=== PATIENT | male | born 1980 | race Caucasian/White ===

== ENCOUNTER 2016-04-24 17:06 | Emergency (ER) | payer OTHER ==
[~2016-04-24 17:06] MED LIST: IBUP-1277 PO; TYLOTC500 PO
[2016-04-24 17:09] VITALS: TEMP 36.7; Ht 162.6 cm
[2016-04-24] MEDS ORDERED: SODIUM CHLORIDE 0.9% 1000ML 1,000 ML IV STA (17:22)
[2016-04-24 17:42] LABS: BASO % 0.1 %; BASO ABS # 0.01 K/uL (0-0.2); COMPLETE YES; EOS % 0.9 %; HEMATOCRIT 42.6 % (42-52); IG% 0.1 %; LYMPH ABS # 2.51 K/uL (1.2-3.4); MEAN CELL VOLUME 84.2 fL (80-100); MEAN CORPUSCULAR HEMOGLOBIN 30.2 pg (25-34); MEAN CORPUSCULAR HGB CONC 35.9 g/dl (32-36); MEAN PLATELET VOLUME 9.1 fL (7.4-10.4); MONO % 10.3 %; NEUT % 52.6 %; PLATELET COUNT 265 K/uL (130-400); RED BLOOD COUNT 5.06 M/uL (4.7-6.1); WHITE BLOOD COUNT 6.97 K/uL (4.8-10.8)
[2016-04-24] MEDS ORDERED: ASPCH81X PO (17:45)
[2016-04-24] MEDS ORDERED: ATOR10TA88 PO (17:45)
[2016-04-24] MEDS ORDERED: GLC/500 PO (17:45)
[2016-04-24 17:57] LABS: URINE APPEARANCE CLOUDY (CLEAR); URINE BILIRUBIN NEG (NEG); URINE COLOR YELLOW; URINE EPITHELIAL CELL AUTO 0-5 /lpf (0-5); URINE NITRITE NEG (NEG); URINE PH 6.5 (4.5-7.5); URINE SPECIFIC GRAVITY 1.023 (1.000-1.030); UROBILINOGEN NEG (NEG); ZZUR CULT IF INDIC CLEAN CATCH NO
[2016-04-24 17:57] LABS: ALT/SGPT 124 U/L (12-78); BLOOD UREA NITROGEN 11 mg/dl (7-18); CALCIUM 8.9 mg/dl (8.5-10.1); CARBON DIOXIDE 22 mmol/L (21-32); CHLORIDE 107 mmol/L (98-107); CREATININE 0.81 mg/dl (0.60-1.40); GLUCOSE 107 mg/dl (70-99); POTASSIUM 3.9 mmol/L (3.5-5.1); SODIUM 140 mmol/L (136-145)
[2016-04-24 18:00] LABS: ALKALINE PHOSPHATASE 98 U/L (45-117); AST/SGOT 44 U/L (15-37)
[2016-04-24 18:00] LABS: MANUAL MICROSCOPIC REQUIRED? NO; REVIEW REQ? NO
[2016-04-24] MEDS ORDERED: OPTIRAY 320 IV PRN (18:15)
--- NOTE | 2016-04-24 18:49 | DIAGNOSTIC IMAGING REPORT ---
ABDOMEN AND PELVIS CT WITH IV CONTRAST CT DOSE: 1082.92 mGy.cm HISTORY: Pain bloody stool, periumbilical pain, ? Colitis TECHNIQUE: Multiaxial CT images of the abdomen and pelvis were performed following the use of intravenous contrast. COMPARISON STUDY: None. FINDINGS: The lung bases are clear. The liver, spleen, gallbladder, pancreas, kidneys, and adrenal glands are within normal limits. No bowel wall thickening or obstruction. The pelvic organs are unremarkable. No suspicious lytic or blastic osseous lesions. Normal appendix. Nonobstructive bowel pattern. IMPRESSION: No significant abnormality identified within the abdomen or pelvis. Electronically signed by: Karthikeyan Abarca M.D. 04/24/2016 6:48 PM Dictated Date/Time: 04/24/2016 6:44 PM
[2016-04-24 18:59] VITALS: BP 110/73; PULSE 79; O2SAT 96
--- NOTE | 2016-04-24 21:07 | EMERGENCY ROOM VISIT NOTE ---
History Report prepared by Sirenaibguanako: Brigida Austin Under the Supervision of: Dr. Rodney Cook M.D. First contact with patient: 17:22 Chief Complaint: ABDOMINAL PAIN Stated Complaint: STABBING PAIN IN ABDOMENW/ DIASTASIS RECTI Nursing Triage Summary: Pt has been experincing umbilical pain for the past couple days. Pt states the pain comes and goes. Pt states that nothing exacerbates pain. Pt states that his umbilical area is tender to touch. Pt states he has a stabbing pain with coughing or touch. Pain is a 5 out of 10. Pt denies any N/V/D History of Present Illness The patient is a 35 year old male who presents to the Emergency Room with complaints of intermittent periumbilical abdominal pain over the past 2 days. The patient states that 2 days ago, he had a bowel movement and noticed that the water in the commode was bright red. He was not having abdominal pain at that time. He states that he noticed some pain to the touch in his abdomen but he did not think anything of it. Yesterday he stabbing pain around his umbilicus , especially if he would move or cough. Currently he states that his pain is a 4 -5/10 with movement. He notes that he frequently has right sided abdominal pain , which is not new, that he attributes to constipation. He has not taken anything for the pain. Pt denies LOC, headache, fevers, chills, diaphoresis, visual changes, neck pain, chest pain, breathing difficulties, nausea, vomiting , back pain, melena, urinary symptoms, numbness, weakness, lymphadenopathy, rash , or other complaints. Source of History: patient Onset: over the past 2 days Position: abdomen (periumbilical) Quality: stabbing Timing: intermittent Modifying Factors (Worsening): movement, other (coughing) Note: Other symptoms: Bloody bowel movement Review of Systems See HPI for pertinent positives and negatives. A total of ten systems were reviewed and were otherwise negative. Past Medical & Surgical Medical Problems: (1) Club foot of both lower extremities (2) Fracture of finger, proximal, closed (3) Pneumonia Surgical Problems: (1) History of orthopedic surgery Family History Cancer Diabetes mellitus Heart disease Hypertension Kidney disease Kidney stones Lung disease Social History Smoking Status: Never Smoker Alcohol Use: none Drug Use: none Marital Status: Housing Status: lives with family Occupation Status: employed Current/Historical Medications Scheduled Aspirin (Aspirin Chewable), 81 MG PO HS Atorvastatin (Lipitor), 10 MG PO HS Metformin Hcl (Glucophage), 500 MG PO BID Scheduled PRN Acetaminophen (Tylenol), 1,000 MG PO Q6 PRN for Pain Ibuprofen (Advil), 200-600 MG PO Q4H PRN for Pain Allergies Coded Allergies: No Known Allergies (Unverified , 04/24/16) Physical Exam Vital Signs Date Time Temp Pulse Resp B/P Pulse Ox O2 Delivery O2 Flow Rate FiO2 04/24/16 18:59 79 20 110/73 96 Room Air 04/24/16 17:29 94 04/24/16 17:09 36.7 100 20 143/91 96 Physical Exam GENERAL: Awake, alert, well-appearing, in no distress HENT: Normocephalic, atraumatic. Oropharynx unremarkable. EYES: Normal conjunctiva. Sclera non-icteric. NECK: Supple. No nuchal rigidity. FROM. No JVD. RESPIRATORY: Clear to auscultation. CARDIAC: Regular rate, normal rhythm. Extremities warm and well perfused. Pulses equal. ABDOMEN: Soft, non-distended. Small, mildly tender, nonerythematous umbilical hernia. No rebound or guarding. No masses. RECTAL: No active bleeding. No fissures. Minimal hemorrhoidal disease. MUSCULOSKELETAL: Chest examination reveals no tenderness. The back is symmetrical on inspection without obvious abnormality. There is no CVA tenderness to palpation. No joint edema. LOWER EXTREMITIES: Calves are equal size bilaterally and non-tender. No edema. No discoloration. NEURO: Normal sensorium. No sensory or motor deficits noted. SKIN: No rash or jaundice noted. Medical Decision & Procedures ER Provider Diagnostic Interpretation: Radiology results as stated below per my review and radiologist interpretation. ABDOMEN AND PELVIS CT WITH IV CONTRAST CT DOSE: 1082.92 mGy.cm HISTORY: Pain bloody stool, periumbilical pain, ? Colitis TECHNIQUE: Multiaxial CT images of the abdomen and pelvis were performed following the use of intravenous contrast. COMPARISON STUDY: None. FINDINGS: The lung bases are clear. The liver, spleen, gallbladder, pancreas, kidneys, and adrenal glands are within normal limits. No bowel wall thickening or obstruction. The pelvic organs are unremarkable. No suspicious lytic or blastic osseous lesions. Normal appendix. Nonobstructive bowel pattern. IMPRESSION: No significant abnormality identified within the abdomen or pelvis. Electronically signed by: Karthikeyan Abarca M.D. 04/24/2016 6:48 PM Dictated Date/Time: 04/24/2016 6:44 PM Laboratory Results 04/24/16 17:36 Red Blood Count 5.06, Mean Corpuscular Volume 84.2, Mean Corpuscular Hemoglobin 30.2, Mean Corpuscular Hemoglobin Concent 35.9, Mean Platelet Volume 9.1, Neutrophils (%) (Auto) 52.6, Lymphocytes (%) (Auto) 36.0, Monocytes (%) (Auto) 10.3, Eosinophils (%) (Auto) 0.9, Basophils (%) (Auto) 0.1, Neutrophils # (Auto ) 3.66, Lymphocytes # (Auto) 2.51, Monocytes # (Auto) 0.72, Eosinophils # (Auto ) 0.06, Basophils # (Auto) 0.01 04/24/16 17:36 Test 04/24/16 17:36 04/24/16 17:40 White Blood Count 6.97 K/uL (4.8-10.8) Red Blood Count 5.06 M/uL (4.7-6.1) Hemoglobin 15.3 g/dL (14.0-18.0) Hematocrit 42.6 % (42-52) Mean Corpuscular Volume 84.2 fL (80-100) Mean Corpuscular Hemoglobin 30.2 pg (25-34) Mean Corpuscular Hemoglobin Concent 35.9 g/dl (32-36) Platelet Count 265 K/uL (130-400) Mean Platelet Volume 9.1 fL (7.4-10.4) Neutrophils (%) (Auto) 52.6 % Lymphocytes (%) (Auto) 36.0 % Monocytes (%) (Auto) 10.3 % Eosinophils (%) (Auto) 0.9 % Basophils (%) (Auto) 0.1 % Neutrophils # (Auto) 3.66 K/uL (1.4-6.5) Lymphocytes # (Auto) 2.51 K/uL (1.2-3.4) Monocytes # (Auto) 0.72 K/uL (0.11-0.59) Eosinophils # (Auto) 0.06 K/uL (0-0.5) Basophils # (Auto) 0.01 K/uL (0-0.2) RDW Standard Deviation 39.5 fL (36.4-46.3) RDW Coefficient of Variation 13.1 % (11.5-14.5) Immature Granulocyte % (Auto) 0.1 % Immature Granulocyte # (Auto) 0.01 K/uL (0.00-0.02) Anion Gap 11.0 mmol/L (3-11) Estimated GFR () 131.6 Estimated GFR (Non- 113.5 BUN/Creatinine Ratio 14.0 (10-20) Calcium Level 8.9 mg/dl (8.5-10.1) Total Bilirubin 0.3 mg/dl (0.2-1) Direct Bilirubin < 0.1 mg/dl (0-0.2) Aspartate Amino Transf (AST/SGOT) 44 U/L (15-37) Alanine Aminotransferase (ALT/SGPT) 124 U/L (12-78) Alkaline Phosphatase 98 U/L (45-117) Total Protein 8.3 gm/dl (6.4-8.2) Albumin 4.3 gm/dl (3.4-5.0) Lipase 171 U/L (73-393) Urine Color YELLOW Urine Appearance CLOUDY (CLEAR) Urine pH 6.5 (4.5-7.5) Urine Specific Wiley 1.023 (1.000-1.030) Urine Protein NEG (NEG) Urine Glucose (UA) NEG (NEG) Urine Ketones NEG (NEG) Urine Occult Blood NEG (NEG) Urine Nitrite NEG (NEG) Urine Bilirubin NEG (NEG) Urine Urobilinogen NEG (NEG) Urine Leukocyte Esterase NEG (NEG) Urine WBC (Auto) 0 /hpf (0-5) Urine RBC (Auto) 0-4 /hpf (0-4) Urine Hyaline Casts (Auto) 0 /lpf (0-5) Urine Epithelial Cells (Auto) 0-5 /lpf (0-5) Urine Bacteria (Auto) NEG (NEG) Laboratory results reviewed by me Medications Administered Medications (Trade) Dose Ordered Sig/Stephanie Route Start Time Stop Time Status Last Admin Dose Admin Sodium Chloride (Nss 1000ml) 1,000 ml @ 999 mls/hr Q1H1M STAT IV 04/24/16 17:22 2/3/17 18:22 DC 04/24/16 17:39 999 MLS/HR ED Course 1722: Ordered NSS 1000 ml @ 999 mls/hr IV. 180: The patient was evaluated in room C9. A complete history and physical exam was performed. 1904: I reevaluated the patient. Discussed results and discharge instructions: He verbalized understanding and agreement. The patient is ready for discharge. Medical Decision Triage Nursing notes reviewed. The patient's presentation and history were concerning for abdominal pain and bloody stool. Etiologies such as appendicitis, diverticulitis, obstruction, hernia, fissure, hemorrhoids, inflammatory bowel disease, renal colic, PUD, biliary pathology, pancreatitis, mesenteric ischemia, aortic pathology, infections, genitourinary, UTI, perforated viscus, as well as others were entertained. The patient was evaluated. On examination he had a small umbilical hernia that was reducible. This was tender. This did reproduce the patient's symptoms. His rectal examination did not reveal any evidence of fissure or significant hemorrhoid. There is no active bleeding. The patient had unremarkable labs. CT imaging was performed. There is no significant intra-abdominal abnormalities. Umbilical fat-containing hernia was noted. The patient was informed. Hernia precautions given. On further questioning the patient noted a hard stool before the episode of bleeding. He notes he has had that in the past with hard stool. The patient noted a normal bowel movement after that yesterday and then had a bowel movement today without any bleeding. He is recommending sounds most consistent with constipation and possible small fissure or hemorrhoidal issue. The patient will follow-up closely as an outpatient. He was referred to general surgery as well as his primary physician. If he worsens in any way he will be back to the emergency department for reevaluation. By the evaluation outlined above other emergent etiologies such as those listed in the differential, as well as others, were deemed relatively unlikely. The patient and significant other were informed about the findings as listed above. All questions were answered and they were pleased with the treatment. Return instructions were outlined and the patient was discharged in stable condition. The chart was completed utilizing [employer] recognition software. Grammatical errors, random word insertions, pronoun errors, and incomplete sentences are an occasional consequence of this system due to software limitations, ambient noise, and hardware issues. Any formal questions or concerns about the content, text, or information contained within the body of this dictation should be directly addressed to the physician for clarification. Impression Primary Impression: Umbilical hernia Additional Impression: Rectal bleeding Scribe Attestation The scribe's documentation has been prepared under my direction and personally reviewed by me in its entirety. I confirm that the note above accurately reflects all work, treatment, procedures, and medical decision making performed by me. Departure Information Dispostion Home / Self-Care Referrals Nehemias Strickland M.D. (MEDICAL) (PCP) Forms Call Back Authorization, HOME CARE DOCUMENTATION FORM, IMPORTANT VISIT INFORMATION Patient Instructions My [facility] Additional Instructions Diagnosis: 1. Umbilical hernia Ibuprofen(Motrin, Advil) may be used for fever or pain. Use 600mg every six hours as needed. Take with food. Avoid using more than 2400mg in a 24 hour period. Do not use 2400mg per day for more than three consecutive days without physician direction. Prolonged inappropriate use can lead to stomach upset or ulcers. (AND/OR) Acetaminophen(Tylenol) may be used for fever or pain. Use 1000mg every six hours as needed. Avoid using more than 4000mg in a 24 hour period. Rest and drink plenty of fluids as tolerated. Slow sips of water or sports drinks are recommended instead of large amounts all at once. Hold your Glucophage. Recheck with your family doctor on Wednesday before restarting. Watch sugar and carbohydrate intake. Kidney function should be checked before restarting this due to the CAT scan. Continue other current medications. Once your stomach is settled start with a clear liquid diet (jello, soup broth, etc.) and then advance as tolerated. You should avoid full, heavy meals for about 24 hrs from the time your symptoms resolved. If the hernia pops out, laid flat and apply gentle pressure to push this back in. If it does not resolve or becomes stomach and read with associated pain then come back to the Emergency Room. Return to the ER immediately for worsening or persistent abdominal pain, vomiting, fevers, chest pains, difficulty breathing, black or bloody stools, worsening of your condition, or as needed. Follow up with Dr. Torres general surgery for a recheck of your current condition. Follow-up with your primary care physician in 3 days for a recheck of your current condition. Problem Qualifiers
== END 2016-04-24 19:25 | disposition home or self-care (01) ==
LOC: C.EDB 17:08 → C.EDC 19:25
DX: K42.9 Umbilical hernia without obstruction or gangrene (principal); K62.5 Hemorrhage of anus and rectum

== ENCOUNTER 2016-06-05 16:08 | Emergency (ER) | payer OTHER ==
[~2016-06-05] VITALS: Ht 162.6 cm; Wt 104.7 kg
[~2016-06-05 16:08] MED LIST changes: +ASPCH81X PO; +ATOR10TA88 PO; +GLC/500 PO
[2016-06-05 16:11] VITALS: TEMP 37.6; Ht 162.6 cm; Wt 104.7 kg
[2016-06-05] MEDS ORDERED: ALBUT/IPRATROP 3MG/0.5MG NEB 3 ML VIAL INH STA ×2 (16:33→18:59)
[2016-06-05] MEDS ORDERED: SODIUM CHLORIDE 0.9% 1000ML 1,000 ML IV STA (16:33)
[2016-06-05] MEDS ORDERED: ATOR-22 PO (16:43)
[2016-06-05] MEDS ORDERED: COEN1CAP17 PO (16:43)
[2016-06-05] MEDS ORDERED: CEFTRIAXONE SOD INJ 1 GM ADDVIAL IV STA (16:45)
[2016-06-05] MEDS ORDERED: OXYCODONE/ACETAMINOPHEN 5-325 TAB PO ONE (17:00)
--- NOTE | 2016-06-05 17:23 | DIAGNOSTIC IMAGING REPORT ---
CHEST ONE VIEW PORTABLE CLINICAL HISTORY: sob dyspnea COMPARISON STUDY: 11/30/2014 FINDINGS: Diffuse infiltrate left mid to lower lung. Right lung is clear. Diaphragms smooth. IMPRESSION: Diffuse parenchymal infiltrate left mid to lower lung Electronically signed by: Karthikeyan Abarca M.D. 06/05/2016 5:21 PM Dictated Date/Time: 06/05/2016 5:21 PM
[2016-06-05 17:26] LABS: BASO % 0.1 %; BASO ABS # 0.01 K/uL (0-0.2); COMPLETE YES; EOS % 0.7 %; HEMATOCRIT 39.3 % (42-52); IG% 0.2 %; LYMPH % 17.1 %; LYMPH ABS # 2.34 K/uL (1.2-3.4); MEAN CORPUSCULAR HEMOGLOBIN 30.4 pg (25-34); MEAN CORPUSCULAR HGB CONC 35.4 g/dl (32-36); MEAN PLATELET VOLUME 9.5 fL (7.4-10.4); MONO % 4.7 %; NEUT % 77.2 %; PLATELET COUNT 234 K/uL (130-400); RED BLOOD COUNT 4.57 M/uL (4.7-6.1); WHITE BLOOD COUNT 13.69 K/uL (4.8-10.8)
[2016-06-05 17:33] LABS: INR 1.1 (0.9-1.1); PARTIAL THROMBOPLASTIN RATIO 1.2; PROTHROMBIN TIME (PATIENT) 11.9 SECONDS (9.0-12.0)
[2016-06-05 17:42] LABS: ALT/SGPT 70 U/L (12-78); AST/SGOT 18 U/L (15-37); BLOOD UREA NITROGEN 12 mg/dl (7-18); BUN/CREATININE RATIO 15.8 (10-20); CALCIUM 8.4 mg/dl (8.5-10.1); CARBON DIOXIDE 23 mmol/L (21-32); CHLORIDE 106 mmol/L (98-107); CREATININE 0.74 mg/dl (0.60-1.40); GLUCOSE 110 mg/dl (70-99); POTASSIUM 3.7 mmol/L (3.5-5.1); SODIUM 138 mmol/L (136-145)
[2016-06-05 17:47] LABS: ALKALINE PHOSPHATASE 76 U/L (45-117)
[2016-06-05] MEDS ORDERED: AMPICILLIN/SULBACTAM SOD INJ 3,000 MG in SODIUM CHLORIDE 0.9% 100ML 100 ML IV ONE (19:00)
[2016-06-05] MEDS ORDERED: ALBUTEROL HFA 8 GM INHALER INH ONE (19:15)
[2016-06-05] MEDS ORDERED: AMOX875T PO (19:15)
--- NOTE | 2016-06-05 19:16 | EMERGENCY ROOM VISIT NOTE ---
History Report prepared by Jeanette: Dimitry Camargo Under the Supervision of: Dr. Jabari Johnston D.O. First contact with patient: 16:31 Chief Complaint: FEVER Stated Complaint: FEVER, COUGHING BLOOD,SORE THROAT, S/P COLONOSCOPY History of Present Illness The patient is a 35 year old male who presents to the Emergency Room with complaints of a persistent fever beginning one day prior to arrival. He currently rates his discomfort as a 4/10 in severity. The patient associates a cough with blood in the sputum, sorethroat, wheezing, and decreased appetite with today's symptoms. He states he had a colonoscopy performed yesterday, in which, he was briefly intubated. The patient notes he developed a fever last night. As per , the fever was 102 F last night and has been over 100 F all day today. The patient states he has been taking ibuprofen to relieve his symptoms. He notes his colonoscopy went well other than the intubation and developing his symptoms last night. The patient states he is a diabetic but denies any pulmonary issues. Source of History: patient Onset: one day [employer] Position: other (global) Symptom Intensity: 4/10 Quality: other (fever) Timing: other (persistent) Modifying Factors (Relieving): ibuprofen Associated Symptoms: + cough (w/ some blood in sputum), + fevers, + sorethroat Note: Associated symptoms: wheezing, decreased appetite. Review of Systems See HPI for pertinent positives & negatives. A total of 10 systems reviewed and were otherwise negative. Past Medical & Surgical Medical Problems: (1) Club foot of both lower extremities (2) Diabetes (3) Fracture of finger, proximal, closed (4) Pneumonia Surgical Problems: (1) History of orthopedic surgery Family History Cancer Diabetes mellitus Heart disease Hypertension Kidney disease Kidney stones Lung disease Social History Smoking Status: Never Smoker Alcohol Use: none Drug Use: none Marital Status: Housing Status: lives with family Occupation Status: employed Current/Historical Medications Scheduled Aspirin (Aspirin Chewable), 81 MG PO HS Atorvastatin (Lipitor), 20 MG PO DAILY Coenzyme Q10 (Ubidecarenone) (Co Q 10), 1 CAP PO DAILY Metformin Hcl (Glucophage), 500 MG PO BID Allergies Coded Allergies: No Known Allergies (Unverified , 06/05/16) Physical Exam Vital Signs Date Time Temp Pulse Resp B/P Pulse Ox O2 Delivery O2 Flow Rate FiO2 06/05/16 18:00 93 18 116/77 94 Room Air 06/05/16 16:11 37.6 102 20 134/89 93 Room Air Physical Exam CONSTITUTIONAL/VITAL SIGNS: Reviewed / noted above. GENERAL: Non-toxic in appearance. INTEGUMENTARY: Warm, dry, and Maria Antonia. HEAD: Normocephalic. EYES: without scleral icterus or trauma. ENT/OROPHARYNX: Erythema to the uvula with a small amount of white plaque on the right side of the uvula. LYMPHADENOPATHY/NECK: Is supple without lymphadenopathy or meningismus. RESPIRATORY: There is some mild end expiratory wheezing. CARDIOVASCULAR: Regular rate and rhythm. GI/ABDOMEN: Soft and nontender. No organomegaly or pulsatile mass. No rebound or guarding. Normal bowel sounds. EXTREMITIES: Warm and well perfused. BACK: No CVA tenderness. NEUROLOGICAL: Intact without focal deficits. PSYCHIATRIC: normal affect. MUSCULOSKELETAL: Normally developed with good muscle tone. Medical Decision & Procedures ER Provider Diagnostic Interpretation: X ray results and stated below per my interpretation and radiology interpretation. CHEST ONE VIEW PORTABLE CLINICAL HISTORY: sob dyspnea COMPARISON STUDY: 11/30/2014 FINDINGS: Diffuse infiltrate left mid to lower lung. Right lung is clear. Diaphragms smooth. IMPRESSION: Diffuse parenchymal infiltrate left mid to lower lung Electronically signed by: Karthikeyan Abarca M.D. 06/05/2016 5:21 PM Laboratory Results 06/05/16 17:00 Red Blood Count 4.57, Mean Corpuscular Volume 86.0, Mean Corpuscular Hemoglobin 30.4, Mean Corpuscular Hemoglobin Concent 35.4, Mean Platelet Volume 9.5, Neutrophils (%) (Auto) 77.2, Lymphocytes (%) (Auto) 17.1, Monocytes (%) (Auto) 4.7, Eosinophils (%) (Auto) 0.7, Basophils (%) (Auto) 0.1, Neutrophils # (Auto) 10.57, Lymphocytes # (Auto) 2.34, Monocytes # (Auto) 0.65, Eosinophils # (Auto) 0.09, Basophils # (Auto) 0.01 06/05/16 17:00 Test 06/05/16 17:00 06/05/16 17:10 White Blood Count 13.69 K/uL (4.8-10.8) Red Blood Count 4.57 M/uL (4.7-6.1) Hemoglobin 13.9 g/dL (14.0-18.0) Hematocrit 39.3 % (42-52) Mean Corpuscular Volume 86.0 fL (80-100) Mean Corpuscular Hemoglobin 30.4 pg (25-34) Mean Corpuscular Hemoglobin Concent 35.4 g/dl (32-36) Platelet Count 234 K/uL (130-400) Mean Platelet Volume 9.5 fL (7.4-10.4) Neutrophils (%) (Auto) 77.2 % Lymphocytes (%) (Auto) 17.1 % Monocytes (%) (Auto) 4.7 % Eosinophils (%) (Auto) 0.7 % Basophils (%) (Auto) 0.1 % Neutrophils # (Auto) 10.57 K/uL (1.4-6.5) Lymphocytes # (Auto) 2.34 K/uL (1.2-3.4) Monocytes # (Auto) 0.65 K/uL (0.11-0.59) Eosinophils # (Auto) 0.09 K/uL (0-0.5) Basophils # (Auto) 0.01 K/uL (0-0.2) RDW Standard Deviation 42.1 fL (36.4-46.3) RDW Coefficient of Variation 13.4 % (11.5-14.5) Immature Granulocyte % (Auto) 0.2 % Immature Granulocyte # (Auto) 0.03 K/uL (0.00-0.02) Prothrombin Time 11.9 SECONDS (9.0-12.0) Prothromb Time International Ratio 1.1 (0.9-1.1) Activated Partial Thromboplast Time 29.9 SECONDS (21.0-31.0) Partial Thromboplastin Ratio 1.2 Anion Gap 9.0 mmol/L (3-11) Est Creatinine Clear Calc Drug Dose 149.7 ml/min Estimated GFR () 136.6 Estimated GFR (Non- 117.8 BUN/Creatinine Ratio 15.8 (10-20) Calcium Level 8.4 mg/dl (8.5-10.1) Total Bilirubin 0.7 mg/dl (0.2-1) Aspartate Amino Transf (AST/SGOT) 18 U/L (15-37) Alanine Aminotransferase (ALT/SGPT) 70 U/L (12-78) Alkaline Phosphatase 76 U/L (45-117) Total Creatine Kinase 65 U/L (39-308) Creatine Kinase MB < 0.5 ng/ml (0.5-3.6) Creatine Kinase MB Ratio (0-3.0) Troponin I < 0.015 ng/ml (0-0.045) Total Protein 7.7 gm/dl (6.4-8.2) Albumin 3.8 gm/dl (3.4-5.0) Globulin 3.9 gm/dl (2.5-4.0) Albumin/Globulin Ratio 1.0 (0.9-2) Influenza Type A Antigen Neg for Influ A (NEG) Influenza Type B Antigen Neg for Influ B (NEG) Laboratory results as stated above per my review. Medications Administered Medications (Trade) Dose Ordered Sig/Stephanie Route Start Time Stop Time Status Last Admin Dose Admin Albuterol/ Ipratropium 3 ml 3 ml NOW STAT INH 06/05/16 16:33 06/05/16 16:34 DC 06/05/16 17:00 3 ML Sodium Chloride (Nss 1000ml) 1,000 ml @ 999 mls/hr Q1H1M STAT IV 06/05/16 16:33 06/05/16 17:33 DC 06/05/16 17:00 999 MLS/HR Ceftriaxone Sodium (Rocephin Inj) 1 gm NOW STAT IV 06/05/16 16:45 06/05/16 16:47 DC 06/05/16 17:19 1 GM Oxycodone/ Acetaminophen (Percocet 5-325mg Tab) 1 tab NOW ONCE PO 06/05/16 17:00 06/05/16 17:01 DC 06/05/16 17:00 1 TAB ECG Indication: SOB/dyspnea Rate (beats per minute): 99 Rhythm: normal sinus Findings: no ectopy, other (no acute injury) ED Course 1637: Previous medical records were reviewed. The patient was evaluated in room B7. A complete history and physical examination was performed. 1633: Ordered Sodium Chloride 1,000 ml @ 999 mls/hr IV, Duoneb 3 ml INH. 1645: Ordered Rocephin Inj 1 gm IV. 1700: Ordered Oxycodone/Acetaminophen 1 tab PO. 1859: Ordered Duoneb 3 ml INH. 1900: Ordered Ampicillin Sodium/ Sulbactam Sodium 3,000 mg/Sodium Chloride 108 ml @ 200 mls/hr IV. 1900: On reevaluation, the patient is doing well. I discussed the results and findings with the patient. He verbalized agreement of the treatment plan. The patient was discharged home. Medical Decision The differential was considered includes acute myocardial infarction, acute coronary syndrome, myocarditis, pericarditis, pericardial effusions /tamponad, esophageal perforation, pulmonary embolism, pneumonia, pneumothorax, cardiomyopathy, congestive heart, anemia , COPD/asthma exacerbation. This is a 35-year-old male who presents to the ED with a chief complaint of a fever, sore throat, cough and some shortness of breath. The patient's symptoms started earlier today. He had a colonoscopy yesterday at [facility] and required intubation during the procedure. He states that he was feeling fine prior to this. His symptoms started today. He had temperature of 102 last night. Oxygen saturation is today 93% on room air and his temperature here is 37.6. He has been using Tylenol or Motrin. His exam reveals a erythematous and slightly edematous uvula with a small amount of exudate on the right lateral aspect. The throat otherwise appears to be clear. He does report coughing up some blood-tinged sputum with his cough earlier. These were not clots. The patient's exam reveals some diminished breath sounds bilaterally with some scattered expiratory wheezing. His exam was otherwise unremarkable. He is in no distress, appears to be breathing comfortably. A chest x-ray reveals a left mid/lower lung pneumonia. The patient believes he was on his left side during his colonoscopy. Flu swab was negative. CBC showed a white blood cell count 13.69. Complete metabolic panel and troponin are normal. The patient was treated with a DuoNeb treatment 2, Rocephin IV as well as Unasyn IV and Tylenol by mouth. Given an inhaler to take home. He was discharged on Augmentin. He will return for any worsening or new symptoms. He'll follow-up with his PCP next week for recheck. Impression Primary Impression: Pneumonia Scribe Attestation The scribe's documentation has been prepared under my direction and personally reviewed by me in its entirety. I confirm that the note above accurately reflects all work, treatment, procedures, and medical decision making performed by me. Departure Information Dispostion Home / Self-Care Prescriptions Amoxicillin & Pot Clavulanate (Augmentin 875-125 mg) 1 Tab Tab 875 MG PO BID, #20 TAB Prov: Jabari Johnston D.O. 06/05/16 Referrals Nehemias Strickland M.D. (MEDICAL) (PCP) Patient Instructions ED Pneumonia, My [facility] Additional Instructions Augmentin as prescribed. Albuterol inhaler: 2 puffs every 2-4 hours as needed for wheezing or shortness of breath. Take Tylenol or Motrin as needed for fevers. Follow-up with your doctor next week for recheck. Return for worsening or new concerns.
[2016-06-05 20:12] VITALS: BP 127/81; PULSE 88; O2SAT 96
== END 2016-06-05 20:13 | disposition home or self-care (01) ==
LOC: C.EDB 16:09
DX: J18.9 Pneumonia, unspecified organism (principal); E11.9 Type 2 diabetes mellitus without complications; Z80.9 Family history of malignant neoplasm, unspecified; Z83.3 Family history of diabetes mellitus; Z84.1 Family history of disorders of kidney and ureter

== ENCOUNTER 2017-03-19 20:48 | Emergency (ER) | payer BC, OTHER ==
[~2017-03-19 20:48] MED LIST changes: +ATOR-22 PO; -ATOR10TA88 PO; +COEN1CAP17 PO; +DOXY100C2 PO; -IBUP-1277 PO; -TYLOTC500 PO
[2017-03-19 20:50] VITALS: TEMP 36.4; Ht 162.6 cm
[2017-03-19] MEDS ORDERED: ASPI81TA28 PO (21:04)
[2017-03-19] MEDS ORDERED: HYDROCODONE/ACETAMIN 5/325MG TAB PO ONE (21:15)
--- NOTE | 2017-03-19 21:37 | DIAGNOSTIC IMAGING REPORT ---
L ANKLE MIN 3 VIEWS ROUTINE CLINICAL HISTORY: fall; L ankle and foot pain pain COMPARISON: 07/30/2014 DISCUSSION: Chronic deformity of the a left ankle. This is been described on several prior occasions. There is no well-defined acute bony abnormality. There is no evidence for soft tissue swelling. IMPRESSION: 1. Considerable chronic deformity of the left ankle considered to be stable from prior exams. 2. No acute bony abnormality. The above report was generated using voice recognition software. It may contain grammatical, syntax or spelling errors. Electronically signed by: Karthikeyan Abarca M.D. 03/19/2017 9:36 PM Dictated Date/Time: 03/19/2017 9:34 PM
--- NOTE | 2017-03-19 21:39 | DIAGNOSTIC IMAGING REPORT ---
L FOOT MIN 3 VIEWS ROUTINE CLINICAL HISTORY: same trauma. Pain. COMPARISON: 07/30/2014 DISCUSSION: Stable deformity of the ankle and proximal forefoot. No well-defined acute bony antibody. Study specifically is negative for fracture or dislocation. Mild soft tissue edema. IMPRESSION: 1. The existing deformity of the proximal forefoot and ankle which have been described previously. 2. Mild soft tissue edema. 3. No acute posttraumatic abnormality. The above report was generated using voice recognition software. It may contain grammatical, syntax or spelling errors. Electronically signed by: Karthikeyan Abarca M.D. 03/19/2017 9:37 PM Dictated Date/Time: 03/19/2017 9:36 PM
[2017-03-19 22:13] VITALS: BP 127/71; PULSE 87; O2SAT 98
--- NOTE | 2017-03-20 01:19 | EMERGENCY ROOM VISIT NOTE ---
ED Visit Note First contact with patient: 20:54 Chief Complaint: Left ankle and foot pain. History of Present Illness: Mr. Gamboa is a 36-year-old white male who is brought into the ED via wheelchair complaining of left ankle and foot pain. 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 Patient reports approximately 2 hours ago he jumped off of a barstool and injured his left ankle and foot. Currently he is complaining of pain over the lateral aspect of the ankle inferior to the malleolus and pain along the lateral aspect of the proximal portion of the fifth metatarsal, the cuboid tarsal and the calcaneus. He describes his pain as a deep throbbing sensation. He rates his discomfort 10/10. His pain is nonradiating. His pain worsens with ambulation and plantar flexion. He has not identified any alleviating factors related to the pain. He has not taken any medications for pain prior to arrival at the hospital. Associated with his pain he initially reported he was slightly nauseated because of the severity of the pain but that has subsequently resolved. He denies hip pain, thigh pain, knee pain, lower leg pain, leg/foot weakness/ numbness/tingling. Review of Systems: As noted above in history of present illness. Past Medical History: As previously noted, diabetes, pneumonia. Current Medications: Glucophage, Lipitor, Coenzyme Q10, aspirin. Allergies to Medications: Patient denies. Social History: Patient is currently employed; he feels safe in his home environment; patient denies tobacco use and admits to alcohol use. Physical Examination: Vital Signs: Date Time Temp Pulse Resp B/P (MAP) Pulse Ox O2 Delivery O2 Flow Rate FiO2 03/19/17 22:13 87 18 127/71 98 03/19/17 20:50 36.4 85 18 122/89 98 Room Air GENERAL: 36-year-old male in mild to moderate distress due to pain, nontoxic- appearing, afebrile and hemodynamically stable. NEUROLOGICAL: Awake, alert and oriented to person, place and time. Answering questions appropriately and following commands. SKIN: Warm, dry and pink. No soft tissue trauma noted. LEFT LOWER LEG: No gross bony deformity. No shortening or malrotation. No tenderness in the hip, knee or lower leg. Chronic deformity of the foot was noted. Patient had tenderness inferior and anterior to the lateral malleolus with mild swelling but no palpable bony deformity or crepitus. There is also moderate tenderness over the calcaneus and mild tenderness over the cuboid and proximal aspect of the fifth metatarsal. Was difficult to stress his ligamentous structures but with traditional testing I did not appreciate any laxity at the ankle or foot level. Throughout the foot the skin was warm and pink and capillary refill was brisk. He was able to distinguish light sensations through all dermatomes. He had decreased range of motion in plantar flexion and dorsiflexion of the ankle. He had full range of motion in flexion and extension of all toes. ED Course: Patient is assessed as noted above. Patient's medication list was reviewed. Patient was given one [place] 5/325 mg tablet by mouth for pain and ice for swelling. Left Ankle X-Rays: Was read by myself and the radiologist showing no acute bony abnormalities. Considerable chronic deformity was noted when compared to previous. Left Foot X-Rays: Was read by myself and the radiologist showing no acute fractures or dislocations. Radiologist did note some mild soft tissue swelling. This was once again compared to previous and his existing deformities appear stable. Patient was placed in a fracture boot. Patient was educated about today's findings and instructed on his treatment plan ; he verbalizes understanding and agreement with this plan. Clinical Impression: Left ankle and foot pain. Disposition: Patient discharged home in stable condition accompanied by his ; prior to departure he was reassessed and subjectively reported he was feeling much better and rated his discomfort 4/10. Plan: Comfort measures were discussed with the patient including rest, ice, elevation , fracture boot use and alternating ibuprofen and acetaminophen every 3 hours for persistent pain. Patient was encouraged to follow-up with podiatrist orthopedic if no better in 7 days. Patient was encouraged return ED for worsening/uncontrolled pain, uncontrolled swelling, foot weakness/numbness/tingling or any new/concerning symptoms.
== END 2017-03-19 22:14 | disposition home or self-care (01) ==
LOC: C.EDB 20:49 → C.EDD 22:14
DX: M25.572 Pain in left ankle and joints of left foot (principal); M79.672 Pain in left foot; Q66.89 Other specified congenital deformities of feet

== ENCOUNTER 2022-08-23 03:37 | Inpatient (IN) ==
[2022-08-23] MEDS ORDERED: ONDANSETRON INJ 2 MG/ML 2 ML VIAL IV STA (03:53)
[2022-08-23 04:20] LABS: Basophils # (auto) 0.03 K/uL (0-0.2); Basophils % (auto) 0.4 %; Eosinophils # (auto) 0.03 K/uL (0-0.50); Eosinophils % (auto) 0.4 %; Hematocrit (blood only) 41.8 % (42.0-52.0); Hemoglobin 14.4 g/dl (14.0-18.0); Immature Granulocytes # (auto) 0.02 K/uL (0.01-0.20); Immature Granulocytes % (auto) 0.3 %; Lymphocytes # (auto) 2.37 K/uL (1.2-3.4); Lymphocytes % (auto) 33.5 %; Mean Corpuscular Hemoglobin 30.2 pg (25.0-34.0); Mean Corpuscular Hgb Conc 34.4 g/dL (32.0-36.0); Mean Corpuscular Volume 87.6 fL (80.0-100.0); Mean Platelet Volume 9.7 fL (9.4-12.4); Monocytes # (auto) 0.54 K/uL (0.11-0.59); Monocytes % (auto) 7.6 %; Neutrophils # (auto) 4.09 K/uL (1.40-6.50); Neutrophils % (auto) 57.8 %; Platelet Count 228 K/uL (130-400); RDW Standard Deviation 41.2 fL (36.4-46.3); Red Blood Count 4.77 M/uL (4.70-6.10); White Blood Count 7.08 K/ul (4.8-10.8)
[2022-08-23 04:35] LABS: Alanine Aminotransferase 24 U/L (7-52); Albumin Globulin Ratio 1.4 (0.9-2); Albumin Level 4.6 gm/dl (3.4-5.0); Alkaline Phosphatase 59 U/L (34-104); Anion Gap 11 (3-11); Aspartate Aminotransferase 23 U/L (13-39); BUN Creatinine Ratio 26.9 (10-20); Bilirubin,Total 0.3 mg/dl (0.2-1.0); Blood Urea Nitrogen 18 mg/dl (6-23); Calcium 8.6 mg/dl (8.6-10.3); Carbon Dioxide 20 mmol/L (21-32); Chloride 109 mmol/L (98-107); Est GFR (African American) 135.4 ml/min; Est GFR (Non-African American) 116.9 ml/min; Globulin 3.3 gm/dl (2.5-4.0); Glucose 108 mg/dl (70-99(Fasting)); Potassium 4.2 mmol/L (3.5-5.1); Sodium 140 mmol/L (136-145); Total Protein 7.9 gm/dl (6.0-8.3)
--- NOTE | 2022-08-23 06:54 | Emergency Department Note ---
History of Present Illness General Chief complaint: Alcohol Intoxication Time Seen by Provider: 08/23/22 03:40 History of Present Illness This is a 42-year-old male presenting to the emergency department for evaluation of alcohol intoxication. Patient arrives through triage and was reportedly drinking alcohol with family this evening. Upon returning home the patient was not able to get out of the vehicle, and his was concerned. The patient is diabetic. EMS was contacted and bedside glucose was 104. Patient now presents to the ER for evaluation. No injury or trauma. He was with family all night. Home Medications Medication Instructions Recorded Confirmed Type coenzyme Q10 100 mg capsule (Co 1 tab PO DAILY 06/22/18 07/18/18 History Q-10) fluticasone propionate 50 2 spray intranasal QAM 08/23/22 08/23/22 History mcg/actuation nasal spray,suspension Allergies Allergy/AdvReac Type Severity Reaction Status Date / Time No Known Allergies Allergy Verified 07/18/18 12:52 Past Med/Surg History Medical History Diabetes Rectal bleeding Umbilical hernia Surgical History No significant past surgical history Family History Other Cancer Diabetes Gallbladder disease Heart disease Hypertension Social History Smoking Status: Never smoker Preferred Language: Georgian marital status: Current Living Situation: Spouse current occupational status: disabled Feels Safe at Home: Yes Review of Systems A total of 10 systems reviewed and were otherwise negative Physical Exam Vital Signs Vital Signs - 24 hr 08/23/22 03:44 08/23/22 03:47 08/23/22 03:49 Temperature 36.8 C Temperature Source Axillary Pulse Rate Pulse Rate [Apical] 83 Pulse Rate from SpO2 Sensor Respiratory Rate 16 Respiratory Effort / Characteristics Non-Labored Spontaneous Respiratory Depth Normal Respiratory Pattern Regular Blood Pressure Blood Pressure [Right Arm] 117/82 Blood Pressure Mean Blood Pressure Mean [Right Arm] 93 Pulse Oximetry 98 98 Oxygen Delivery Method Room Air Room Air Oxygen Flow Rate Sepsis Recent Fever Within 48 Hours No Sepsis New/Unexplained Change in Mental Status No Sepsis Action Taken by Nursing No Action Required Oxygen Flow Rate - Titration Pulse Oximetry Post Tiitration 08/23/22 03:51 08/23/22 04:05 08/23/22 04:05 Temperature Temperature Source Pulse Rate 83 93 H Pulse Rate [Apical] Pulse Rate from SpO2 Sensor 93 H Respiratory Rate 15 18 Respiratory Effort / Characteristics Respiratory Depth Respiratory Pattern Blood Pressure 127/91 Blood Pressure [Right Arm] Blood Pressure Mean 104 Blood Pressure Mean [Right Arm] Pulse Oximetry 96 Oxygen Delivery Method Oxygen Flow Rate Sepsis Recent Fever Within 48 Hours Sepsis New/Unexplained Change in Mental Status Sepsis Action Taken by Nursing Oxygen Flow Rate - Titration Pulse Oximetry Post Tiitration 08/23/22 03:50 08/23/22 04:39 08/23/22 04:30 Temperature Temperature Source Pulse Rate 85 82 Pulse Rate [Apical] Pulse Rate from SpO2 Sensor 83 Respiratory Rate 18 Respiratory Effort / Characteristics Respiratory Depth Respiratory Pattern Blood Pressure 126/89 Blood Pressure [Right Arm] Blood Pressure Mean 101 Blood Pressure Mean [Right Arm] Pulse Oximetry 76 L 92 Oxygen Delivery Method Oxymask Oxygen Flow Rate Sepsis Recent Fever Within 48 Hours Sepsis New/Unexplained Change in Mental Status Sepsis Action Taken by Nursing Oxygen Flow Rate - Titration 10 Pulse Oximetry Post Tiitration 94 08/23/22 04:51 08/23/22 04:51 08/23/22 05:00 Temperature Temperature Source Pulse Rate 66 Pulse Rate [Apical] Pulse Rate from SpO2 Sensor 66 Respiratory Rate 24 Respiratory Effort / Characteristics Respiratory Depth Respiratory Pattern Blood Pressure 119/80 113/79 Blood Pressure [Right Arm] Blood Pressure Mean 89 101 Blood Pressure Mean [Right Arm] Pulse Oximetry 99 Oxygen Delivery Method Oxygen Flow Rate 10 Sepsis Recent Fever Within 48 Hours Sepsis New/Unexplained Change in Mental Status Sepsis Action Taken by Nursing Oxygen Flow Rate - Titration Pulse Oximetry Post Tiitration 08/23/22 05:00 08/23/22 05:30 08/23/22 05:30 Temperature Temperature Source Pulse Rate 75 89 Pulse Rate [Apical] Pulse Rate from SpO2 Sensor 78 87 Respiratory Rate 24 17 Respiratory Effort / Characteristics Respiratory Depth Respiratory Pattern Blood Pressure 120/84 Blood Pressure [Right Arm] Blood Pressure Mean 96 Blood Pressure Mean [Right Arm] Pulse Oximetry 99 94 Oxygen Delivery Method Oxygen Flow Rate 10 6 Sepsis Recent Fever Within 48 Hours Sepsis New/Unexplained Change in Mental Status Sepsis Action Taken by Nursing Oxygen Flow Rate - Titration Pulse Oximetry Post Tiitration 08/23/22 06:00 08/23/22 06:00 08/23/22 06:30 Temperature Temperature Source Pulse Rate 87 Pulse Rate [Apical] Pulse Rate from SpO2 Sensor 85 Respiratory Rate 17 Respiratory Effort / Characteristics Respiratory Depth Respiratory Pattern Blood Pressure 102/75 91/64 L Blood Pressure [Right Arm] Blood Pressure Mean 88 70 Blood Pressure Mean [Right Arm] Pulse Oximetry 94 Oxygen Delivery Method Oxygen Flow Rate 6 Sepsis Recent Fever Within 48 Hours Sepsis New/Unexplained Change in Mental Status Sepsis Action Taken by Nursing Oxygen Flow Rate - Titration Pulse Oximetry Post Tiitration 08/23/22 06:30 08/23/22 07:13 08/23/22 07:00 Temperature Temperature Source Pulse Rate 86 75 Pulse Rate [Apical] Pulse Rate from SpO2 Sensor 85 Respiratory Rate 16 Respiratory Effort / Characteristics Respiratory Depth Respiratory Pattern Blood Pressure 90/63 L Blood Pressure [Right Arm] Blood Pressure Mean 78 Blood Pressure Mean [Right Arm] Pulse Oximetry 98 Oxygen Delivery Method Oxygen Flow Rate Sepsis Recent Fever Within 48 Hours Sepsis New/Unexplained Change in Mental Status Sepsis Action Taken by Nursing Oxygen Flow Rate - Titration Pulse Oximetry Post Tiitration 08/23/22 07:00 08/23/22 07:30 08/23/22 07:30 Temperature Temperature Source Pulse Rate 74 72 Pulse Rate [Apical] Pulse Rate from SpO2 Sensor 74 72 Respiratory Rate 14 16 Respiratory Effort / Characteristics Respiratory Depth Respiratory Pattern Blood Pressure 87/59 L Blood Pressure [Right Arm] Blood Pressure Mean 68 Blood Pressure Mean [Right Arm] Pulse Oximetry 93 93 Oxygen Delivery Method Oxygen Flow Rate Sepsis Recent Fever Within 48 Hours Sepsis New/Unexplained Change in Mental Status Sepsis Action Taken by Nursing Oxygen Flow Rate - Titration Pulse Oximetry Post Tiitration 08/23/22 08:00 08/23/22 08:00 08/23/22 08:30 Temperature Temperature Source Pulse Rate 76 Pulse Rate [Apical] Pulse Rate from SpO2 Sensor 77 Respiratory Rate 16 Respiratory Effort / Characteristics Respiratory Depth Respiratory Pattern Blood Pressure 85/55 L 90/62 L Blood Pressure [Right Arm] Blood Pressure Mean 66 75 Blood Pressure Mean [Right Arm] Pulse Oximetry 99 Oxygen Delivery Method Oxygen Flow Rate Sepsis Recent Fever Within 48 Hours Sepsis New/Unexplained Change in Mental Status Sepsis Action Taken by Nursing Oxygen Flow Rate - Titration Pulse Oximetry Post Tiitration 08/23/22 08:30 08/23/22 09:00 08/23/22 09:00 Temperature Temperature Source Pulse Rate 78 94 H Pulse Rate [Apical] Pulse Rate from SpO2 Sensor 79 96 H Respiratory Rate 19 20 Respiratory Effort / Characteristics Respiratory Depth Respiratory Pattern Blood Pressure 132/90 Blood Pressure [Right Arm] Blood Pressure Mean 99 Blood Pressure Mean [Right Arm] Pulse Oximetry 92 97 Oxygen Delivery Method Oxygen Flow Rate Sepsis Recent Fever Within 48 Hours Sepsis New/Unexplained Change in Mental Status Sepsis Action Taken by Nursing Oxygen Flow Rate - Titration Pulse Oximetry Post Tiitration 08/23/22 09:30 08/23/22 10:00 08/23/22 10:30 Temperature Temperature Source Pulse Rate Pulse Rate [Apical] Pulse Rate from SpO2 Sensor 74 79 78 Respiratory Rate Respiratory Effort / Characteristics Respiratory Depth Respiratory Pattern Blood Pressure Blood Pressure [Right Arm] Blood Pressure Mean Blood Pressure Mean [Right Arm] Pulse Oximetry 93 90 94 Oxygen Delivery Method Oxygen Flow Rate Sepsis Recent Fever Within 48 Hours Sepsis New/Unexplained Change in Mental Status Sepsis Action Taken by Nursing Oxygen Flow Rate - Titration Pulse Oximetry Post Tiitration 08/23/22 11:00 08/23/22 11:30 08/23/22 12:00 Temperature Temperature Source Pulse Rate Pulse Rate [Apical] Pulse Rate from SpO2 Sensor 83 76 82 Respiratory Rate 17 Respiratory Effort / Characteristics Respiratory Depth Respiratory Pattern Blood Pressure 119/78 Blood Pressure [Right Arm] Blood Pressure Mean 91 Blood Pressure Mean [Right Arm] Pulse Oximetry 94 92 90 Oxygen Delivery Method Oxygen Flow Rate Sepsis Recent Fever Within 48 Hours Sepsis New/Unexplained Change in Mental Status Sepsis Action Taken by Nursing Oxygen Flow Rate - Titration Pulse Oximetry Post Tiitration 08/23/22 12:30 08/23/22 13:16 08/23/22 13:16 Temperature Temperature Source Pulse Rate 81 Pulse Rate [Apical] Pulse Rate from SpO2 Sensor 88 Respiratory Rate 21 Respiratory Effort / Characteristics Respiratory Depth Respiratory Pattern Blood Pressure 116/74 Blood Pressure [Right Arm] Blood Pressure Mean 95 Blood Pressure Mean [Right Arm] Pulse Oximetry 97 Oxygen Delivery Method Oxygen Flow Rate Sepsis Recent Fever Within 48 Hours Sepsis New/Unexplained Change in Mental Status Sepsis Action Taken by Nursing Oxygen Flow Rate - Titration Pulse Oximetry Post Tiitration 08/23/22 13:30 08/23/22 13:30 08/23/22 14:00 Temperature Temperature Source Pulse Rate 88 Pulse Rate [Apical] Pulse Rate from SpO2 Sensor 88 Respiratory Rate 21 Respiratory Effort / Characteristics Respiratory Depth Respiratory Pattern Blood Pressure 118/80 119/78 Blood Pressure [Right Arm] Blood Pressure Mean 92 99 Blood Pressure Mean [Right Arm] Pulse Oximetry 100 Oxygen Delivery Method Oxygen Flow Rate Sepsis Recent Fever Within 48 Hours Sepsis New/Unexplained Change in Mental Status Sepsis Action Taken by Nursing Oxygen Flow Rate - Titration Pulse Oximetry Post Tiitration 08/23/22 14:00 08/23/22 15:55 Temperature Temperature Source Pulse Rate 76 85 Pulse Rate [Apical] Pulse Rate from SpO2 Sensor 75 Respiratory Rate 20 Respiratory Effort / Characteristics Respiratory Depth Respiratory Pattern Blood Pressure Blood Pressure [Right Arm] Blood Pressure Mean Blood Pressure Mean [Right Arm] Pulse Oximetry 85 L Oxygen Delivery Method Room Air Oxygen Flow Rate Sepsis Recent Fever Within 48 Hours Sepsis New/Unexplained Change in Mental Status Sepsis Action Taken by Nursing Oxygen Flow Rate - Titration Pulse Oximetry Post Tiitration VITALS: Vitals are noted on the nurse's note and reviewed by myself. Vital signs stable. GENERAL: Obtunded white male who appears intoxicated. He is not able to answer questions due to his status. HEAD: Normocephalic atraumatic. MOUTH: Mucous membranes moist. Tonsils are not enlarged. Pharynx without eryt nanda, blood, or exudate. Uvula midline. Airway patent. NECK: Supple without nuchal rigidity. No lymphadenopathy. No thyromegaly. Cervical spine is nontender. HEART: Regular rate and rhythm without murmurs gallops or rubs. LUNGS: Clear to auscultation bilaterally without wheezes, rales or rhonchi. No retractions or accessory muscle use. ABDOMEN: Positive normal bowel sounds x 4. Soft, nontender, without masses or organomegaly. No guarding or rebound tenderness. MUSCULOSKELETAL: No muscle atrophy, erythema, or edema noted. Course Administered Medications Discontinued Medications Sodium Chloride (Nss 1000ml) 1,000 mls @ 999 mls/hr IV .Q1H1M KYRA Stop: 08/23/22 13:30 Last Infusion: 08/23/22 14:48 Dose: 0 mls/hr Documented By: Admin: 08/23/22 12:44 Dose: 999 mls/hr Documented By: IGLESIA Ioversol (Optiray 320 500ml) 108 ml IV ONCE ONE Stop: 08/23/22 13:05 Last Admin: 08/23/22 13:04 Dose: 108 ml Documented By: ANN Ondansetron HCl (Ondansetron Inj 2 Mg/Ml 2 Ml Vial) 4 mg IV NOW STA Stop: 08/23/22 03:54 Last Admin: 08/23/22 04:06 Dose: 4 mg Documented By: THEO Medical Decision Making Differential Diagnosis Differential diagnosis: Etiologies such as alcohol intoxication, toxicological, infection, hypoglycemia, electrolyte abnormalities, cardiac sources, intracerebral event, neurologic, as well as others were entertained. Laboratory Data 08/23/22 04:00 08/23/22 04:00 Lab Results 08/23/22 08/23/22 08/23/22 Range/Units 04:00 04:00 04:00 WBC 7.08 (4.8-10.8) K/ul RBC 4.77 (4.70-6.10) M/uL Hgb 14.4 (14.0-18.0) g/dl Hct 41.8 L (42.0-52.0) % MCV 87.6 (80.0-100.0) fL MCH 30.2 (25.0-34.0) pg MCHC 34.4 (32.0-36.0) g/dL RDW Std Deviation 41.2 (36.4-46.3) fL RDW Coeff of Kyle 13.0 (11.5-14.5) % Plt Count 228 (130-400) K/uL MPV 9.7 (9.4-12.4) fL Immature Gran % (Auto) 0.3 % Neut % (Auto) 57.8 % Lymph % (Auto) 33.5 % [place] % (Auto) 7.6 % Eos % (Auto) 0.4 % Baso % (Auto) 0.4 % Neut # (Auto) 4.09 (1.40-6.50) K/uL Lymph # (Auto) 2.37 (1.2-3.4) K/uL [place] # (Auto) 0.54 (0.11-0.59) K/uL Eos # (Auto) 0.03 (0-0.50) K/uL Baso # (Auto) 0.03 (0-0.2) K/uL Immature Gran # (Auto) 0.02 (0.01-0.20) K/uL Sodium 140 (136-145) mmol/L Potassium 4.2 (3.5-5.1) mmol/L Chloride 109 H (98-107) mmol/L Carbon Dioxide 20 L (21-32) mmol/L Anion Gap 11 (3-11) BUN 18 (6-23) mg/dl Creatinine 0.67 (0.6-1.4) mg/dl Est Cr Clr Drug Dosing Not Reportable Est GFR ( Amer) 135.4 ml/min Est GFR (Non-Af Amer) 116.9 ml/min BUN/Creatinine Ratio 26.9 H (10-20) Glucose 108 H (70-99(Fasting)) mg/dl POC Glucose (70-99) mg/dl Calcium 8.6 (8.6-10.3) mg/dl Total Bilirubin 0.3 (0.2-1.0) mg/dl Direct Bilirubin (0-0.2) mg/dl AST 23 (13-39) U/L ALT 24 (7-52) U/L Alkaline Phosphatase 59 (34-104) U/L Total Protein 7.9 (6.0-8.3) gm/dl Albumin 4.6 (3.4-5.0) gm/dl Globulin 3.3 (2.5-4.0) gm/dl Albumin/Globulin Ratio 1.4 (0.9-2) Ethyl Alcohol mg/dL 339.8 H (<10.0) mg/dl 08/23/22 08/23/22 08/23/22 Range/Units 12:34 12:34 12:49 WBC 9.47 (4.8-10.8) K/ul RBC 4.81 (4.70-6.10) M/uL Hgb 14.5 (14.0-18.0) g/dl Hct 42.2 (42.0-52.0) % MCV 87.7 (80.0-100.0) fL MCH 30.1 (25.0-34.0) pg MCHC 34.4 (32.0-36.0) g/dL RDW Std Deviation 42.5 (36.4-46.3) fL RDW Coeff of Kyle 13.2 (11.5-14.5) % Plt Count 239 (130-400) K/uL MPV 9.7 (9.4-12.4) fL Immature Gran % (Auto) 0.4 % Neut % (Auto) 78.3 % Lymph % (Auto) 17.6 % [place] % (Auto) 3.6 % Eos % (Auto) 0.0 % Baso % (Auto) 0.1 % Neut # (Auto) 7.41 H (1.40-6.50) K/uL Lymph # (Auto) 1.67 (1.2-3.4) K/uL [place] # (Auto) 0.34 (0.11-0.59) K/uL Eos # (Auto) 0.00 (0-0.50) K/uL Baso # (Auto) 0.01 (0-0.2) K/uL Immature Gran # (Auto) 0.04 (0.01-0.20) K/uL Sodium 140 (136-145) mmol/L Potassium 4.3 (3.5-5.1) mmol/L Chloride 106 (98-107) mmol/L Carbon Dioxide 22 (21-32) mmol/L Anion Gap 12 H (3-11) BUN 12 (6-23) mg/dl Creatinine 0.53 L (0.6-1.4) mg/dl Est Cr Clr Drug Dosing Not Reportable Est GFR ( Amer) 149.1 ml/min Est GFR (Non-Af Amer) 128.7 ml/min BUN/Creatinine Ratio 22.6 H (10-20) Glucose 105 H (70-99(Fasting)) mg/dl POC Glucose 93 (70-99) mg/dl Calcium 8.8 (8.6-10.3) mg/dl Total Bilirubin 0.3 (0.2-1.0) mg/dl Direct Bilirubin 0.1 (0-0.2) mg/dl AST 23 (13-39) U/L ALT 26 (7-52) U/L Alkaline Phosphatase 62 (34-104) U/L Total Protein 8.2 (6.0-8.3) gm/dl Albumin 4.9 (3.4-5.0) gm/dl Globulin 3.3 (2.5-4.0) gm/dl Albumin/Globulin Ratio 1.5 (0.9-2) Ethyl Alcohol mg/dL (<10.0) mg/dl 08/23/22 Range/Units 13:39 WBC (4.8-10.8) K/ul RBC (4.70-6.10) M/uL Hgb (14.0-18.0) g/dl Hct (42.0-52.0) % MCV (80.0-100.0) fL MCH (25.0-34.0) pg MCHC (32.0-36.0) g/dL RDW Std Deviation (36.4-46.3) fL RDW Coeff of Kyle (11.5-14.5) % Plt Count (130-400) K/uL MPV (9.4-12.4) fL Immature Gran % (Auto) % Neut % (Auto) % Lymph % (Auto) % [place] % (Auto) % Eos % (Auto) % Baso % (Auto) % Neut # (Auto) (1.40-6.50) K/uL Lymph # (Auto) (1.2-3.4) K/uL [place] # (Auto) (0.11-0.59) K/uL Eos # (Auto) (0-0.50) K/uL Baso # (Auto) (0-0.2) K/uL Immature Gran # (Auto) (0.01-0.20) K/uL Sodium (136-145) mmol/L Potassium (3.5-5.1) mmol/L Chloride (98-107) mmol/L Carbon Dioxide (21-32) mmol/L Anion Gap (3-11) BUN (6-23) mg/dl Creatinine (0.6-1.4) mg/dl Est Cr Clr Drug Dosing Est GFR ( Amer) ml/min Est GFR (Non-Af Amer) ml/min BUN/Creatinine Ratio (10-20) Glucose (70-99(Fasting)) mg/dl POC Glucose (70-99) mg/dl Calcium (8.6-10.3) mg/dl Total Bilirubin (0.2-1.0) mg/dl Direct Bilirubin (0-0.2) mg/dl AST (13-39) U/L ALT (7-52) U/L Alkaline Phosphatase (34-104) U/L Total Protein (6.0-8.3) gm/dl Albumin (3.4-5.0) gm/dl Globulin (2.5-4.0) gm/dl Albumin/Globulin Ratio (0.9-2) Ethyl Alcohol mg/dL 182.8 H (<10.0) mg/dl Imaging Data Radiologist's Impression: Cervical Spine CT 08/23/22 12:38 CT cervical spine wo con CLINICAL HISTORY: 42 years-old Male with decreased motor function/weakness alcohol last nig. Acute neck pain without reported trauma. COMPARISON: CT head same day TECHNIQUE: Multiple axial CT images of the cervical spine were obtained without contrast. A dose lowering technique was utilized adhering to the principles of ALARA. FINDINGS: Vertebral body heights and alignment are normal. No fracture or subluxation is identifed. Minimal facet arthrosis. Mild mid cervical dextroscoliosis. The intervertebral disc spaces are preserved. No significant central canal or neural foraminal stenosis is identified. The cervical soft tissues appear unremarkable. The visualized lung apices appear clear. IMPRESSION: No acute cervical spine fracture or subluxation. ACT 112: Negative or not required by law. The above report was generated using voice recognition software. It may contain grammatical, syntax or spelling errors. Electronically signed by: Chay Wilson M.D. 08/23/2022 2:[address] 08/23/22 12:38 CT angio head w con, CT angio neck with con, CT head/brain wo con CLINICAL HISTORY: 42 years-old Male with altered mental/motor status. Acutely altered mental status COMPARISON STUDY: 2019 TECHNIQUE: Unenhanced axial CT scan of the brain is performed. Subsequently, following the IV administration of 108 cc of Optiray, CT angiogram of the head and neck was performed from the aortic arch to the skull apex. Images are reviewed in the axial, sagittal, and coronal planes. 3-D MIPS images are created and assessed. IV contrast was administered without complication. All measurements were obtained according to NASCET criteria. A dose lowering technique was utilized adhering to the principles of ALARA. CT DOSE: 3852.89 mGy.cm FINDINGS: CT BRAIN: There is no acute intracranial hemorrhage, midline shift, hydrocephalus, intracranial mass, territorial ischemia or abnormal extra-axial collections. No abnormal intra-axial or extra-axial enhancement. Trace mastoid effusions. No calvarial fracture. Mild polypoid mucosal thickening of the maxillary sinuses.. CT ANGIOGRAM OF THE HEAD AND NECK: Unremarkable thoracic aortic arch, common and internal carotid arteries. The bilateral anterior and middle cerebral arteries are also patent. The vertebrobasilar system and posterior cerebral arteries are widely patent. There is no aneurysm, high-grade stenosis, or proximal branch occlusion identified. Dural sinuses appear patent. No pneumothorax fracture identified. Unremarkable soft tissues. IMPRESSION: 1. No acute intracranial abnormality. 2. Unremarkable CTA of the head and neck. ACT 112: Negative or not required by law. The above report was generated using voice recognition software. It may contain grammatical, syntax or spelling errors. Electronically signed by: Chay Wilson M.D. 08/23/2022 2:56 PM Abdomen/Pelvis CT 08/23/22 12:43 CT angio chest PE protocol, CT abd pelvis IV con only HISTORY: 42 years-old Male with PE, altered mental status. Acute chest and abdominal pain with altered mental status TECHNIQUE: Multiple CTA images of the chest were obtained after the intravenous administration of 108 ml Optiray. Coronal and sagittal MIPS were obtained from the axial data set and were submitted for review. All measurements were obtained according to NASCET criteria. CT abdomen and pelvis with IV contrast only also obtained. A dose lowering technique was utilized adhering to the principles of ALARA. COMPARISON: CT abdomen and pelvis 03/27/2022, chest CT 08/05/2018 FINDINGS: CTA: Heart is upper limits of normal in size. No pericardial effusion. No thoracic corticated near his own. Unremarkable pulmonary artery. No pulmonary emboli identified. CT CHEST: Unremarkable thyroid. No lymphadenopathy. No pneumothorax, pleural effusion or overt pulmonary edema. No suspicious pulmonary nodules or masses. There are a few low suspicion scattered solid pulmonary nodules measuring up to 3 mm which appear stable and are likely benign. Mild subsegmental bibasilar atelectasis. Central airways are patent. Unremarkable soft tissues. No acute fracture. CT ABDOMEN/PELVIS: No pneumatosis or pneumoperitoneum. Unremarkable spleen, pancreas, gallbladder and adrenal glands. There are a few scattered punctate hepatic calcifications. Patency of the hepatic and portal veins. No suspicious hepatic mass lesions. Unchanged 4 mm calculus in the inferior pole left kidney. No hydronephrosis. Symmetric enhancement of the kidneys. Urinary bladder wall thickening with partial distention and trabeculation suggestive of chronic outlet obstruction. Prostatomegaly. No abdominal aortic aneurysm or lymphadenopathy. No bowel obstruction or bowel wall thickening. Normal appendix. Tiny fat filled umbilical hernia no acute fracture. IMPRESSION: 1. No pulmonary emboli identified. 2. No acute posttraumatic intrathoracic, intra-abdominal or intrapelvic abnormality. 3. Left nephrolithiasis. ACT 112: Negative or not required by law. The above report was generated using voice recognition software. It may contain grammatical, syntax or spelling errors. Electronically signed by: Chay Wilson M.D. 08/23/2022 2:56 PM Chest CTA 08/23/22 12:43 CT angio chest PE protocol, CT abd pelvis IV con only HISTORY: 42 years-old Male with PE, altered mental status. Acute chest and abdominal pain with altered mental status TECHNIQUE: Multiple CTA images of the chest were obtained after the intravenous administration of 108 ml Optiray. Coronal and sagittal MIPS were obtained from the axial data set and were submitted for review. All measurements were obtained according to NASCET criteria. CT abdomen and pelvis with IV contrast only also obtained. A dose lowering technique was utilized adhering to the principles of ALARA. COMPARISON: CT abdomen and pelvis 03/27/2022, chest CT 08/05/2018 FINDINGS: CTA: Heart is upper limits of normal in size. No pericardial effusion. No thoracic corticated near his own. Unremarkable pulmonary artery. No pulmonary emboli identified. CT CHEST: Unremarkable thyroid. No lymphadenopathy. No pneumothorax, pleural effusion or overt pulmonary edema. No suspicious pulmonary nodules or masses. There are a few low suspicion scattered solid pulmonary nodules measuring up to 3 mm which appear stable and are likely benign. Mild subsegmental bibasilar atelectasis. Central airways are patent. Unremarkable soft tissues. No acute fracture. CT ABDOMEN/PELVIS: No pneumatosis or pneumoperitoneum. Unremarkable spleen, pancreas, gallbladder and adrenal glands. There are a few scattered punctate hepatic calcifications. Patency of the hepatic and portal veins. No suspicious hepatic mass lesions. Unchanged 4 mm calculus in the inferior pole left kidney. No hydronephrosis. Symmetric enhancement of the kidneys. Urinary bladder wall thickening with partial distention and trabeculation suggestive of chronic outlet obstruction. Prostatomegaly. No abdominal aortic aneurysm or lymphadenopathy. No bowel obstruction or bowel wall thickening. Normal appendix. Tiny fat filled umbilical hernia no acute fracture. IMPRESSION: 1. No pulmonary emboli identified. 2. No acute posttraumatic intrathoracic, intra-abdominal or intrapelvic abnormality. 3. Left nephrolithiasis. ACT 112: Negative or not required by law. The above report was generated using voice recognition software. It may contain grammatical, syntax or spelling errors. Electronically signed by: Chay Wilson M.D. 08/23/2022 2:56 PM Head CTA 08/23/22 12:56 CT angio head w con, CT angio neck with con, CT head/brain wo con CLINICAL HISTORY: 42 years-old Male with altered mental/motor status. Acutely altered mental status COMPARISON STUDY: And 2019 TECHNIQUE: Unenhanced axial CT scan of the brain is performed. Subsequently, following the IV administration of 108 cc of Optiray, CT angiogram of the head and neck was performed from the aortic arch to the skull apex. Images are reviewed in the axial, sagittal, and coronal planes. 3-D MIPS images are created and assessed. IV contrast was administered without complication. All measurements were obtained according to NASCET criteria. A dose lowering technique was utilized adhering to the principles of ALARA. CT DOSE: 3852.89 mGy.cm FINDINGS: CT BRAIN: There is no acute intracranial hemorrhage, midline shift, hydrocephalus, intracranial mass, territorial ischemia or abnormal extra-axial collections. No abnormal intra-axial or extra-axial enhancement. Trace mastoid effusions. No calvarial fracture. Mild polypoid mucosal thickening of the maxillary sinuses.. CT ANGIOGRAM OF THE HEAD AND NECK: Unremarkable thoracic aortic arch, common and internal carotid arteries. The bilateral anterior and middle cerebral arteries are also patent. The vertebrobasilar system and posterior cerebral arteries are widely patent. There is no aneurysm, high-grade stenosis, or proximal branch occlusion identified. Dural sinuses appear patent. No pneumothorax fracture identified. Unremarkable soft tissues. IMPRESSION: 1. No acute intracranial abnormality. 2. Unremarkable CTA of the head and neck. ACT 112: Negative or not required by law. The above report was generated using voice recognition software. It may contain grammatical, syntax or spelling errors. Electronically signed by: Chay Wilson M.D. 08/23/2022 2:56 PM Neck CTA 08/23/22 12:56 CT angio head w con, CT angio neck with con, CT head/brain wo con CLINICAL HISTORY: 42 years-old Male with altered mental/motor status. Acutely altered mental status COMPARISON STUDY: 2019 TECHNIQUE: Unenhanced axial CT scan of the brain is performed. Subsequently, following the IV administration of 108 cc of Optiray, CT angiogram of the head a nd neck was performed from the aortic arch to the skull apex. Images are reviewed in the axial, sagittal, and coronal planes. 3-D MIPS images are created and assessed. IV contrast was administered without complication. All measurements were obtained according to NASCET criteria. A dose lowering tech nique was utilized adhering to the principles of ALARA. CT DOSE: 3852.89 mGy.cm FINDINGS: CT BRAIN: There is no acute intracranial hemorrhage, midline shift, hydrocephalus, intracranial mass, territorial ischemia or abnormal extra-axial collections. No abnormal intra-axial or extra-axial enhancement. Trace mastoid effusions. No calvarial fracture. Mild polypoid mucosal thickening of the maxillary sinuses.. CT ANGIOGRAM OF THE HEAD AND NECK: Unremarkable thoracic aortic arch, common and internal carotid arteries. The bilateral anterior and middle cerebral arteries are also patent. The vertebrobasilar system and posterior cerebral arteries are widely patent. There is no aneurysm, high-grade stenosis, or proximal branch occlusion identified. Dural sinuses appear patent. No pneumothorax fracture identified. Unremarkable soft tissues. IMPRESSION: 1. No acute intracranial abnormality. 2. Unremarkable CTA of the head and neck. ACT 112: Negative or not required by law. The above report was generated using voice recognition software. It may contain grammatical, syntax or spelling errors. Electronically signed by: Chay Wilson M.D. 08/23/2022 2:56 PM MDM Narrative Physical exam and history were performed. Nursing notes, EMR, and Medication List were personally reviewed. No social concerns were identified as barriers to patients care. Patient appears to have been drinking alcohol with family tonight. He is difficult to arouse but is protecting his airway. No obvious trauma per patient's who is with him this evening. No report of drug use. IV access was established and labs were obtained. Placed on the awake overnight monitor and cared for under aspiration precautions. He did have an episode of vomiting here in the ER was given Zofran through the IV. An order was placed for continuous cardiac monitoring. The monitor shows a rate of 83 with normal sinus rhythm. He is having some apneic symptoms while slee ping on his abdomen, and did require nasal cannula oxygen. Patient's blood work is as above and was reviewed. He does not have a significantly elevated white blood cell count, gross anemia, bandemia, or significant electrolyte imbalance. Alcohol is markedly elevated at 339. Lab glucose is 108. Patient's is at bedside, and updated on his status. The patient remained in stable condition until the time of shift change. Case was discussed with my colleague, Martin Lundberg PA-C, at the time of shift change. Patient will need reevaluated. Please see Mr. Ramirez's dictation for further patient course, plan, disposition. The chart was completed utilizing [employer] Voice Recognition Software. Grammatical errors, random word insertions, pronoun errors, and incomplete sentences are an occasional consequence of this system due to software limitations, ambient noise, and hardware issues. Any formal questions or concerns about the content, text, or information contained within the body of this dictation should be directly addressed to the provider for clarification. . Impression & Plan Alcohol use with intoxication Discharge Plan Visit Data Chief Complaint: Alcohol Intoxication ED Provider: Eyad Carter ED Midlevel Provider: Martin Lundberg Discharge Problem: Alcohol use with intoxication Patient Disposition: Admitted As Inpatient Condition: Good Discharge Instructions Interventions: ED Discharge Assessment Last Done: 08/23/22 20:35
[2022-08-23] MEDS ORDERED: SODIUM CHLORIDE 0.9% 1000ML 1,000 ML IV SCH (12:30)
[2022-08-23] MEDS ORDERED: OPTIRAY 320 500ml IV ONE (13:04)
[2022-08-23 13:19] LABS: Basophils # (auto) 0.01 K/uL (0-0.2); Basophils % (auto) 0.1 %; Hematocrit (blood only) 42.2 % (42.0-52.0); Hemoglobin 14.5 g/dl (14.0-18.0); Immature Granulocytes # (auto) 0.04 K/uL (0.01-0.20); Immature Granulocytes % (auto) 0.4 %; Lymphocytes # (auto) 1.67 K/uL (1.2-3.4); Lymphocytes % (auto) 17.6 %; Mean Corpuscular Hemoglobin 30.1 pg (25.0-34.0); Mean Corpuscular Hgb Conc 34.4 g/dL (32.0-36.0); Mean Corpuscular Volume 87.7 fL (80.0-100.0); Mean Platelet Volume 9.7 fL (9.4-12.4); Monocytes # (auto) 0.34 K/uL (0.11-0.59); Monocytes % (auto) 3.6 %; Neutrophils # (auto) 7.41 K/uL (1.40-6.50); Neutrophils % (auto) 78.3 %; Platelet Count 239 K/uL (130-400); RDW Coefficient of Variation 13.2 % (11.5-14.5); RDW Standard Deviation 42.5 fL (36.4-46.3); Red Blood Count 4.81 M/uL (4.70-6.10); White Blood Count 9.47 K/ul (4.8-10.8)
[2022-08-23 13:35] LABS: Alanine Aminotransferase 26 U/L (7-52); Albumin Globulin Ratio 1.5 (0.9-2); Albumin Level 4.9 gm/dl (3.4-5.0); Alkaline Phosphatase 62 U/L (34-104); Anion Gap 12 (3-11); Aspartate Aminotransferase 23 U/L (13-39); BUN Creatinine Ratio 22.6 (10-20); Bilirubin Direct 0.1 mg/dl (0-0.2); Bilirubin,Total 0.3 mg/dl (0.2-1.0); Blood Urea Nitrogen 12 mg/dl (6-23); Calcium 8.8 mg/dl (8.6-10.3); Carbon Dioxide 22 mmol/L (21-32); Chloride 106 mmol/L (98-107); Est GFR (African American) 149.1 ml/min; Est GFR (Non-African American) 128.7 ml/min; Globulin 3.3 gm/dl (2.5-4.0); Glucose 105 mg/dl (70-99(Fasting)); Potassium 4.3 mmol/L (3.5-5.1); Sodium 140 mmol/L (136-145); Total Protein 8.2 gm/dl (6.0-8.3)
--- NOTE | 2022-08-23 14:58 | CT Scan Report ---
CT angio head w con, CT angio neck with con, CT head/brain wo con CLINICAL HISTORY: 42 years-old Male with altered mental/motor status. Acutely altered mental statu s COMPARISON STUDY: 2019 TECHNIQUE: Unenhanced axial CT scan of the brain is performed. Subsequently, following the IV adminis tration of 108 cc of Optiray, CT angiogram of the head and neck was performed from the aortic arch to the skull apex. Images are reviewed in the axial, sagittal, and coronal planes. 3-D MIPS images are created and assessed. IV contrast was administered without complication. All measurements were obtain ed according to NASCET criteria. A dose lowering technique was utilized adhering to the principles of ALARA. CT DOSE: 3852.89 mGy.cm FINDINGS: CT BRAIN: There is no acute intracranial hemorrhage, midline shift, hydrocephalus, intracranial mass, territori al ischemia or abnormal extra-axial collections. No abnormal intra-axial or extra-axial enhancement. Trace mastoid effusions. No calvarial fracture. Mild polypoid mucosal thickening of the maxillary sin uses.. CT ANGIOGRAM OF THE HEAD AND NECK: Unremarkable thoracic aortic arch, common and internal carotid arteries. The bilateral anterior and m iddle cerebral arteries are also patent. The vertebrobasilar system and posterior cerebral arteries a re widely patent. There is no aneurysm, high-grade stenosis, or proximal branch occlusion identified. Dural sinuses appear patent. No pneumothorax fracture identified. Unremarkable soft tissues. IMPRESSION: 1. No acute intracranial abnormality. 2. Unremarkable CTA of the head and neck. ACT 112: Negative or not required by law. The above report was generated using voice recognition software. It may contain grammatical, syntax o r spelling errors. Electronically signed by: Chay Wilson M.D. 08/23/2022 2:56 PM
--- NOTE | 2022-08-23 14:58 | CT Scan Report ---
CT angio chest PE protocol, CT abd pelvis IV con only HISTORY: 42 years-old Male with PE, altered mental status. Acute chest and abdominal pain with alte red mental status TECHNIQUE: Multiple CTA images of the chest were obtained after the intravenous administration of 108 ml Optiray. Coronal and sagittal MIPS were obtained from the axial data set and were submitted for review. All measurements were obtained according to NASCET criteria. CT abdomen and pelvis with IV c ontrast only also obtained. A dose lowering technique was utilized adhering to the principles of SIN Manuel. COMPARISON: CT abdomen and pelvis 03/27/2022, chest CT 08/05/2018 FINDINGS: CTA: Heart is upper limits of normal in size. No pericardial effusion. No thoracic corticated near his own . Unremarkable pulmonary artery. No pulmonary emboli identified. CT CHEST: Unremarkable thyroid. No lymphadenopathy. No pneumothorax, pleural effusion or overt pulmonary edema. No suspicious pulmonary nodules or masses. There are a few low suspicion scattered solid pulmonary n odules measuring up to 3 mm which appear stable and are likely benign. Mild subsegmental bibasilar at electasis. Central airways are patent. Unremarkable soft tissues. No acute fracture. CT ABDOMEN/PELVIS: No pneumatosis or pneumoperitoneum. Unremarkable spleen, pancreas, gallbladder and adrenal glands. Th ere are a few scattered punctate hepatic calcifications. Patency of the hepatic and portal veins. No suspicious hepatic mass lesions. Unchanged 4 mm calculus in the inferior pole left kidney. No hydrone phrosis. Symmetric enhancement of the kidneys. Urinary bladder wall thickening with partial distentio n and trabeculation suggestive of chronic outlet obstruction. Prostatomegaly. No abdominal aortic ane urysm or lymphadenopathy. No bowel obstruction or bowel wall thickening. Normal appendix. Tiny fat filled umbilical hernia no a cute fracture. IMPRESSION: 1. No pulmonary emboli identified. 2. No acute posttraumatic intrathoracic, intra-abdominal or intrapelvic abnormality. 3. Left nephrolithiasis. ACT 112: Negative or not required by law. The above report was generated using voice recognition software. It may contain grammatical, syntax o r spelling errors. Electronically signed by: Chay Wilson M.D. 08/23/2022 2:56 PM
--- NOTE | 2022-08-23 14:58 | CT Scan Report ---
CT cervical spine wo con CLINICAL HISTORY: 42 years-old Male with decreased motor function/weakness alcohol last nig. Acute n cori pain without reported trauma. COMPARISON: CT head same day TECHNIQUE: Multiple axial CT images of the cervical spine were obtained without contrast. A dose low ering technique was utilized adhering to the principles of ALARA. FINDINGS: Vertebral body heights and alignment are normal. No fracture or subluxation is identifed. Minimal facet arthrosis. Mild mid cervical dextroscoliosis. The intervertebral disc spaces are preser tereso. No significant central canal or neural foraminal stenosis is identified. The cervical soft tissues appear unremarkable. The visualized lung apices appear clear. IMPRESSION: No acute cervical spine fracture or subluxation. ACT 112: Negative or not required by law. The above report was generated using voice recognition software. It may contain grammatical, syntax o r spelling errors. Electronically signed by: Chay Wilson M.D. 08/23/2022 2:56 PM
--- NOTE | 2022-08-23 15:17 | Emergency Department Note ---
ED Visit Note This patient had been signed out to Ananth Ramirez by Parish Smith. The patient had been drinking last night and his alcohol was almost 400 he was sobering up. Cardiac concerned as the patient was not waking up despite being here multiple hours I went and saw him. He seems very somnolent still and has minimal movement of his arms and legs bilaterally. He does wake up but falls back to sleep. We did repeat his lab work and it looks unremarkable his blood alcohol still significant elevated at 188. We did do mitchell scans as I was concerned that he could have had a stroke or something neurologic. CT angio of the head and neck as well as CT of the neck, chest, abdomen, pelvis were unremarkable. I talked his at length there is no trauma, I talked to the daughter is with him there is no trauma or coingestions. The patient was further observed while we are waiting to get the CAT scans back. He did wake up significantly and is awake and smiling and talking now. His mother arrived. He still has weakness of the both arms and legs he moves his left thumb. There is been no fall or trauma. I do think he needs to be admitted he may need further MRIs to rule out any neurologic process. It still may be related to tox but at this point he can go home. He is now awake. His oxygen saturation was low earlier when he was more somnolent and has sleep apnea but now its better he is awake. He is hemodynamically stable. We will consult the hospitalist. .
[2022-08-23] MEDS ORDERED: ALUMINUM/MAGNESIUM SUSP 30 ML UDC PO PRN (17:17)
[2022-08-23] MEDS ORDERED: POLYETHYLENE (MIRALAX) 17 GM PACK PO PRN (17:17)
[2022-08-23] MEDS ORDERED: ACETAMINOPHEN 325 MG TAB PO PRN (17:17)
--- NOTE | 2022-08-23 18:48 | History & Physical Report ---
Date of Service August 23, 2022 Assessment & Plan (1) AMS (altered mental status): (2) Alcohol use with intoxication: (3) SMA (spinal muscular atrophy): (4) Muscle weakness: Plan 42yoM with a Hx of spinal muscular atrophy (SMA) with chronic loss of distal muscle strength in both upper and lower extremities who presents with extended sedation/AMS and progressive muscle weakness after drinking alcohol. AMS/Alcohol intoxication/Acutely progressive muscle weakness/SMA Hx of SMA. Was out drinking with his 21 yo daughter, had 4-5 tequila shots and stumbled out to car where he "slumped" and completely lost consciousness in the parking lot. Got to the bar at 11PM and passed out at about 2AM. Able to walk at baseline but unable to use arms to lift things due to SMA. Family states he "slumped" to the ground and they called 911 when they could not get him up. Unarousable in the ED until about 12PM, was able to supply part of the history when seen for this admission. Had some difficulty remembering his last name, believed he was at [facility] and needed prompting like being told it was near his 's birthday to remember the month and date. JES 339 at 4AM, down to only 182 nine hours later at [address] head unremarkable, MRI brain ordered stat. However pt not able to complete it due to claustrophobia. Will defer on antianxiety medications for further sedation at this time given his current AMS. MRI routine ordered to be completed at a later time. ABG and serum osm ordered, urine tox screen and creatinine kinase ordered Passed dysphagia screen Family states pt follows with a specialist at [facility] for his SMA Neurology referral PT/OT DVT prophylaxis: Lovenox SQ Diet: Regular, passed dysphagia screen CODE STATUS: Full code Dispo: Given progressive muscle weakness, concern that it can affect breathing/airway muscles so admitted to Med surg/tele History of Present Illness Primary Care Provider: Tao Berumen, DO 42yoM with a Hx of spinal muscular atrophy (SMA) with chronic loss of distal muscle strength in both upper and lower extremities who presents with extended sedation/AMS and progressive muscle weakness after drinking alcohol. , mother and father present at bedside and contribute to the Hx. Mom notes that he was born with SMA and club feet. Has not been able to lift his arms or use them. Is currently on disability reletaed to his SMA. However he is ambulatory at baseline though he cannot voluntarily move his feet. states they give him some help in the morning but he is usually able to ambulate on his own. She states that he had drinks 2 nights before last night to celebrate her birthday and tolerated that well even better than herself. He was able to get up at 8:30AM the next morning. However, he went out with his daughter who turned 21 last night and had 4-5 tequila shots at about 11PM. By 2AM he was slumped and passed out in the parking lot and unarousable in the ED. notes that he rarely drinks alcohol, has not touched it for many years before this. They deny any further signifcant family H except diabetes. Family states pt follows with a specialist at [facility] for his SMA. Allergies Allergy/AdvReac Type Severity Reaction Status Date / Time No Known Allergies Allergy Verified 07/18/18 12:52 Home Medications Medication Instructions Recorded Confirmed Type coenzyme Q10 100 mg capsule (Co 1 tab PO DAILY 06/22/18 07/18/18 History Q-10) fluticasone propionate 50 2 spray intranasal QAM 08/23/22 08/23/22 History mcg/actuation nasal spray,suspension Past Med/Surg History Medical History Diabetes Rectal bleeding Umbilical hernia Surgical History No significant past surgical history Family History Other Cancer Diabetes Gallbladder disease Heart disease Hypertension Social History Smoking Status: Never smoker Preferred Language: Congolese marital status: Current Living Situation: Spouse current occupational status: disabled Feels Safe at Home: Yes Review of Systems Review of Systems: All systems reviewed & are unremarkable except as noted in HPI & below Physical Exam Physical Exam: General: Lethargic but oriented with prompting. No acute distress Skin: No noted rashes or bruises Psych: could not be adequetly determined Neuro: Did not need sternal rub but obviously lethargic. Weakness distal muscles of arms bilaterally, unable to move proximal arm muscles or feet HEENT: NC/AT, PERRLA, no tongue fasciculations visble CV: RRR, Normal s1, s2. No murmurs appreciated Resp: Breath sounds clear bilaterally, no increased effort of breathing. Abdomen: Soft, slightly tender in lower abdomen. Extremities: No edema in lower extremities bilaterally. Results & Data Results & Data Vital Signs (Past 12 Hours) Vital Signs Pulse Resp BP Pulse Ox O2 Del Method O2 Flow Rate 08/23/22 15:55 85 08/23/22 14:00 76 20 85 L Room Air 08/23/22 14:00 119/78 08/23/22 13:30 88 21 100 08/23/22 13:30 118/80 08/23/22 13:16 81 21 08/23/22 13:16 116/74 08/23/22 12:30 97 08/23/22 12:00 90 08/23/22 11:30 17 119/78 92 08/23/22 11:00 94 08/23/22 10:30 94 08/23/22 10:00 90 08/23/22 09:30 93 08/23/22 09:00 94 H 20 97 08/23/22 09:00 132/90 08/23/22 08:30 78 19 92 08/23/22 08:30 90/62 L 08/23/22 08:00 76 16 99 08/23/22 08:00 85/55 L 08/23/22 07:30 72 16 93 08/23/22 07:30 87/59 L 08/23/22 07:00 74 14 93 08/23/22 07:00 90/63 L 08/23/22 07:13 75 08/23/22 06:30 86 16 98 08/23/22 06:30 91/64 L 08/23/22 06:00 87 17 94 6 08/23/22 06:00 102/75 08/23/22 05:30 89 17 94 6 08/23/22 05:30 120/84 Diagnostic Findings Cervical Spine CT 08/23/22 12:38 CT cervical spine wo con CLINICAL HISTORY: 42 years-old Male with decreased motor function/weakness alcohol last nig. Acute neck pain without reported trauma. COMPARISON: CT head same day TECHNIQUE: Multiple axial CT images of the cervical spine were obtained without contrast. A dose lowering technique was utilized adhering to the principles of ALARA. FINDINGS: Vertebral body heights and alignment are normal. No fracture or subluxation is identifed. Minimal facet arthrosis. Mild mid cervical dextroscoliosis. The intervertebral disc spaces are preserved. No significant central canal or neural foraminal stenosis is identified. The cervical soft tissues appear unremarkable. The visualized lung apices appear clear. IMPRESSION: No acute cervical spine fracture or subluxation. ACT 112: Negative or not required by law. The above report was generated using voice recognition software. It may contain grammatical, syntax or spelling errors. Electronically signed by: Chay Wilson M.D. 08/23/2022 2:[address] 08/23/22 12:38 CT angio head w con, CT angio neck with con, CT head/brain wo con CLINICAL HISTORY: 42 years-old Male with altered mental/motor status. Acutely altered mental status COMPARISON STUDY: 2019 TECHNIQUE: Unenhanced axial CT scan of the brain is performed. Subsequently, following the IV administration of 108 cc of Optiray, CT angiogram of the head and neck was performed from the aortic arch to the skull apex. Images are reviewed in the axial, sagittal, and coronal planes. 3-D MIPS images are created and assessed. IV contrast was administered without complication. All measurements were obtained according to NASCET criteria. A dose lowering technique was utilized adhering to the principles of ALARA. CT DOSE: 3852.89 mGy.cm FINDINGS: CT BRAIN: There is no acute intracranial hemorrhage, midline shift, hydrocephalus, intracranial mass, territorial ischemia or abnormal extra-axial collections. No abnormal intra-axial or extra-axial enhancement. Trace mastoid effusions. No c alvarial fracture. Mild polypoid mucosal thickening of the maxillary sinuses.. CT ANGIOGRAM OF THE HEAD AND NECK: Unremarkable thoracic aortic arch, common and internal carotid arteries. The tiffani ateral anterior and middle cerebral arteries are also patent. The vertebrobasilar system and posterior cerebral arteries are widely patent. There is no aneurysm, high-grade stenosis, or proximal branch occlusion identified. Dural sinuses appear patent. No pneumothorax fracture identified. Unremarkable soft tissues. IMPRESSION: 1. No acute intracranial abnormality. 2. Unremarkable CTA of the head and neck. ACT 112: Negative or not required by law. The above report was generated using voice recognition software. It may contain grammatical, syntax or spelling errors. Electronically signed by: Chay Wilson M.D. 08/23/2022 2:56 PM Abdomen/Pelvis CT 08/23/22 12:43 CT angio chest PE protocol, CT abd pelvis IV con only HISTORY: 42 years-old Male with PE, altered mental status. Acute chest and abdominal pain with altered mental status TECHNIQUE: Multiple CTA images of the chest were obtained after the intravenous administration of 108 ml Optiray. Coronal and sagittal MIPS were obtained from the axial data set and were submitted for review. All measurements were obtained according to NASCET criteria. CT abdomen and pelvis with IV contrast only also obtained. A dose lowering technique was utilized adhering to the principles of ALARA. COMPARISON: CT abdomen and pelvis 03/27/2022, chest CT 08/05/2018 FINDINGS: CTA: Heart is upper limits of normal in size. No pericardial effusion. No thoracic corticated near his own. Unremarkable pulmonary artery. No pulmonary emboli identified. CT CHEST: Unremarkable thyroid. No lymphadenopathy. No pneumothorax, pleural effusion or overt pulmonary edema. No suspicious pulmonary nodules or masses. There are a few low suspicion scattered solid pulmonary nodules measuring up to 3 mm which appear stable and are likely benign. Mild subsegmental bibasilar atelectasis. Central airways are patent. Unremarkable soft tissues. No acute fracture. CT ABDOMEN/PELVIS: No pneumatosis or pneumoperitoneum. Unremarkable spleen, pancreas, gallbladder and adrenal glands. There are a few scattered punctate hepatic calcifications. Patency of the hepatic and portal veins. No suspicious hepatic mass lesions. Unchanged 4 mm calculus in the inferior pole left kidney. No hydronephrosis. Symmetric enhancement of the kidneys. Urinary bladder wall thickening with partial distention and trabeculation suggestive of chronic outlet obstruction. Prostatomegaly. No abdominal aortic aneurysm or lymphadenopathy. No bowel obstruction or bowel wall thickening. Normal appendix. Tiny fat filled umbilical hernia no acute fracture. IMPRESSION: 1. No pulmonary emboli identified. 2. No acute posttraumatic intrathoracic, intra-abdominal or intrapelvic abnormality. 3. Left nephrolithiasis. ACT 112: Negative or not required by law. The above report was generated using voice recognition software. It may contain grammatical, syntax or spelling errors. Electronically signed by: Chay Wilson M.D. 08/23/2022 2:56 PM Chest CTA 08/23/22 12:43 CT angio chest PE protocol, CT abd pelvis IV con only HISTORY: 42 years-old Male with PE, altered mental status. Acute chest and abdominal pain with altered mental status TECHNIQUE: Multiple CTA images of the chest were obtained after the intravenous administration of 108 ml Optiray. Coronal and sagittal MIPS were obtained from the axial data set and were submitted for review. All measurements were obtained according to NASCET criteria. CT abdomen and pelvis with IV contrast only also obtained. A dose lowering technique was utilized adhering to the principles of ALARA. COMPARISON: CT abdomen and pelvis 03/27/2022, chest CT 08/05/2018 FINDINGS: CTA: Heart is upper limits of normal in size. No pericardial effusion. No thoracic corticated near his own. Unremarkable pulmonary artery. No pulmonary emboli identified. CT CHEST: Unremarkable thyroid. No lymphadenopathy. No pneumothorax, pleural effusion or overt pulmonary edema. No suspicious pulmonary nodules or masses. There are a few low suspicion scattered solid pulmonary nodules measuring up to 3 mm which appear stable and are likely benign. Mild subsegmental bibasilar atelectasis. Central airways are patent. Unremarkable soft tissues. No acute fracture. CT ABDOMEN/PELVIS: No pneumatosis or pneumoperitoneum. Unremarkable spleen, pancreas, gallbladder and adrenal glands. There are a few scattered punctate hepatic calcifications. Patency of the hepatic and portal veins. No suspicious hepatic mass lesions. Unchanged 4 mm calculus in the inferior pole left kidney. No hydronephrosis. Symmetric enhancement of the kidneys. Urinary bladder wall thickening with partial distention and trabeculation suggestive of chronic outlet obstruction. Prostatomegaly. No abdominal aortic aneurysm or lymphadenopathy. No bowel obstruction or bowel wall thickening. Normal appendix. Tiny fat filled umbilical hernia no acute fracture. IMPRESSION: 1. No pulmonary emboli identified. 2. No acute posttraumatic intrathoracic, intra-abdominal or intrapelvic abnormality. 3. Left nephrolithiasis. ACT 112: Negative or not required by law. The above report was generated using voice recognition software. It may contain grammatical, syntax or spelling errors. Electronically signed by: Chay Wilson M.D. 08/23/2022 2:56 PM Head CTA 08/23/22 12:56 CT angio head w con, CT angio neck with con, CT head/brain wo con CLINICAL HISTORY: 42 years-old Male with altered mental/motor status. Acutely altered mental status COMPARISON STUDY: 2019 TECHNIQUE: Unenhanced axial CT scan of the brain is performed. Subsequently, following the IV administration of 108 cc of Optiray, CT angiogram of the head and neck was performed from the aortic arch to the skull apex. Images are reviewed in the axial, sagittal, and coronal planes. 3-D MIPS images are created and assessed. IV contrast was administered without complication. All measurements were obtained according to NASCET criteria. A dose lowering technique was utilized adhering to the principles of ALARA. CT DOSE: 3852.89 mGy.cm FINDINGS: CT BRAIN: There is no acute intracranial hemorrhage, midline shift, hydrocephalus, intracranial mass, territorial ischemia or abnormal extra-axial collections. No abnormal intra-axial or extra-axial enhancement. Trace mastoid effusions. No calvarial fracture. Mild polypoid mucosal thickening of the maxillary sinuses.. CT ANGIOGRAM OF THE HEAD AND NECK: Unremarkable thoracic aortic arch, common and internal carotid arteries. The bilateral anterior and middle cerebral arteries are also patent. The vertebrobasilar system and posterior cerebral arteries are widely patent. There is no aneurysm, high-grade stenosis, or proximal branch occlusion identified. Dural sinuses appear patent. No pneumothorax fracture identified. Unremarkable soft tissues. IMPRESSION: 1. No acute intracranial abnormality. 2. Unremarkable CTA of the head and neck. ACT 112: Negative or not required by law. The above report was generated using voice recognition software. It may contain grammatical, syntax or spelling errors. Electronically signed by: Chay Wilson M.D. 08/23/2022 2:56 PM Neck CTA 08/23/22 12:56 CT angio head w con, CT angio neck with con, CT head/brain wo con CLINICAL HISTORY: 42 years-old Male with altered mental/motor status. Acutely altered mental status COMPARISON STUDY: 2019 TECHNIQUE: Unenhanced axial CT scan of the brain is performed. Subsequently, following the IV administration of 108 cc of Optiray, CT angiogram of the head and neck was performed from the aortic arch to the skull apex. Images are reviewed in the axial, sagittal, and coronal planes. 3-D MIPS images are created and assessed. IV contrast was administered without complication. All measurements were obtained according to NASCET criteria. A dose lowering technique was utilized adhering to the principles of ALARA. CT DOSE: 3852.89 mGy.cm FINDINGS: CT BRAIN: There is no acute intracranial hemorrhage, midline shift, hydrocephalus, intracranial mass, territorial ischemia or abnormal extra-axial collections. No abnormal intra-axial or extra-axial enhancement. Trace mastoid effusions. No calvarial fracture. Mild polypoid mucosal thickening of the maxillary sinuses.. CT ANGIOGRAM OF THE HEAD AND NECK: Unremarkable thoracic aortic arch, common and internal carotid arteries. The bilateral anterior and middle cerebral arteries are also patent. The vertebrobasilar system and posterior cerebral arteries are widely patent. There is no aneurysm, high-grade stenosis, or proximal branch occlusion identified. Dural sinuses appear patent. No pneumothorax fracture identified. Unremarkable soft tissues.
[2022-08-23] MEDS ORDERED: SODIUM CHLORIDE 0.9% 1000ML 1,000 ML IV ONE (21:24)
[2022-08-23] MEDS ORDERED: LACTATED RINGER'S 1,000 ML IV ONE (23:00)
[2022-08-23] MEDS ORDERED: LORazepam 0.5 MG TAB PO PRN (23:15)
[2022-08-23 23:27] LABS: Base Excess ABG -4.1 mEq/L (-9-1.8); HCO3 ABG 20 mmol/L (19-24); Oxygen Saturation ABG 99.5 % (90-95); PCO2 ABG 33 mmHg (35-46); PO2 ABG 177 mmHg (80-95); pH ABG 7.39 (7.35-7.45)
[2022-08-23 23:31] LABS: Allen Test Pos (Pos)
[2022-08-24] MEDS ORDERED: LORazepam 0.5 MG TAB PO PRN (02:53)
[2022-08-24] MEDS ORDERED: THIAMINE HCL 100 MG in SYRINGE 9 ML IV ONE (03:15)
[2022-08-24] MEDS ORDERED: LACTATED RINGER'S 1,000 ML IV ONE (03:15)
[2022-08-24 03:43] LABS: Magnesium 1.7 mg/dl (1.7-2.4)
[2022-08-24 06:03] LABS: Base Excess ABG 0.6 mEq/L (-9-1.8); HCO3 ABG 25 mmol/L (19-24); PCO2 ABG 36 mmHg (35-46); PO2 ABG 72 mmHg (80-95); pH ABG 7.44 (7.35-7.45)
[2022-08-24 06:07] LABS: Allen Test Pos (Pos)
[2022-08-24 06:28] LABS: BUN Creatinine Ratio 21.4 (10-20); Calcium 8.6 mg/dl (8.6-10.3); Est GFR (African American) 145.8 ml/min; Est GFR (Non-African American) 125.8 ml/min; Potassium 4.3 mmol/L (3.5-5.1)
[2022-08-24 06:40] LABS: Basophils # (auto) 0.03 K/uL (0-0.2); Basophils % (auto) 0.3 %; Eosinophils # (auto) 0.02 K/uL (0-0.50); Eosinophils % (auto) 0.2 %; Hematocrit (blood only) 37.2 % (42.0-52.0); Hemoglobin 12.8 g/dl (14.0-18.0); Immature Granulocytes # (auto) 0.02 K/uL (0.01-0.20); Immature Granulocytes % (auto) 0.2 %; Lymphocytes # (auto) 2.68 K/uL (1.2-3.4); Mean Corpuscular Hemoglobin 30.2 pg (25.0-34.0); Mean Corpuscular Hgb Conc 34.4 g/dL (32.0-36.0); Mean Corpuscular Volume 87.7 fL (80.0-100.0); Mean Platelet Volume 9.7 fL (9.4-12.4); Monocytes # (auto) 0.74 K/uL (0.11-0.59); Monocytes % (auto) 8.6 %; Neutrophils # (auto) 5.15 K/uL (1.40-6.50); Neutrophils % (auto) 59.7 %; Platelet Count 216 K/uL (130-400); RDW Coefficient of Variation 13.2 % (11.5-14.5); RDW Standard Deviation 42.4 fL (36.4-46.3); Red Blood Count 4.24 M/uL (4.70-6.10); White Blood Count 8.64 K/ul (4.8-10.8)
[2022-08-24] MEDS ORDERED: MULTIVITAMIN TAB PO SCH (09:00)
[2022-08-24] MEDS ORDERED: FOLIC ACID 1 MG TAB PO SCH (09:00)
[2022-08-24] MEDS ORDERED: ENOXAPARIN INJ 40 MG/0.4 ML SYR SQ SCH (09:00)
--- NOTE | 2022-08-24 09:47 | Emergency Department Note ---
History of Present Illness General Chief complaint: Alcohol Intoxication Time Seen by Provider: 08/23/22 03:40 History of Present Illness This 42-year-old male was signed out to me by Sarah JENSEN due to change of shift. The patient was reportedly out last evening with his and daughter for the daughter's 21st birthday. He had reportedly for tequila drinks, and became severely intoxicated. His states they had trouble getting him into the car because he lacked muscle tone. By the time she got him home, she states she had difficulty removing him from the car and had to drag him out. He more or less slid out of the car onto the ground. She states she was unable to pick him up. She involved her son and the patient's mother, but they were still unable to get him up off the ground. At that point EMS was called and he was brought to the ED for alcohol intoxication. There was no known trauma last night. She states she was with him for most of the evening other than perhaps a bathroom break. They were at the [facility], and she believes she saw everything that he drank. Alcohol level was 339 at 4 AM. His states that he does not normally drink much alcohol, but did have 2 drinks earlier in the weekend for her birthday, and had no issue I attempted to wake the patient numerous times this morning between 8 AM and noon. Each time he was unarousable, snoring, and did not speak. His was in the room this morning as well, and states he did open his eyes a few times and mumble, but said nothing of significance. He reportedly did have to urinate somewhere around 11:50 AM, and was assisted to the toilet by the nurse and the . He then was put back in bed. Reexamination around 1230 revealed hypersomnolence, and no appreciable motor function of the upper or lower ex tremities. He was unable to speak in sentences and had a significantly altered mental status. I spoke with his and she confirmed that he is not like this at all. He has a history of spinal muscular atrophy since , and does have some weakness and abnormal motor function. He has a history of congenital clubfeet with multiple surgical corrections. He reportedly has little to no toe and ankle function, but has normal hip and knee function. Home Medications Medication Instructions Recorded Confirmed Type coenzyme Q10 100 mg capsule (Co 1 tab PO DAILY 06/22/18 07/18/18 History Q-10) fluticasone propionate 50 2 spray intranasal QAM 08/23/22 08/23/22 History mcg/actuation nasal spray,suspension folic acid 1 mg tablet 1 mg PO QAM 15 days #15 tabs 08/24/22 Rx multivitamin with folic acid 400 1 tab PO QAM 15 days #15 tabs 08/24/22 Rx mcg tablet (Daily-Jodie (with folic acid)) thiamine HCl (vitamin B1) 100 mg 100 mg PO QAM 15 days #15 tabs 08/24/22 Rx tablet Allergies Allergy/AdvReac Type Severity Reaction Status Date / Time No Known Allergies Allergy Verified 07/18/18 12:52 Past Med/Surg History Medical History (Updated 08/24/22 @ 09:42 by Martin Lundberg PA-C) Diabetes Rectal bleeding SMA (spinal muscular atrophy) Umbilical hernia Surgical History (Updated 08/24/22 @ 09:42 by Martin Lundberg PA-C) Hx of foot surgery Family History Other Cancer Diabetes Gallbladder disease Heart disease Hypertension Social History Smoking Status: Former smoker Second Hand Exposure: No; Do You Dip or Chew Tobacco: No; Hx Alcohol Use: Yes Alcohol type: hard liquor Hx Substance Use: No Preferred Language: German Communication Ability: Effective Correspondence Section Supervisor Required: No Beliefs That Will Affect Care: None marital status: Current Living Situation: Spouse and Family current occupational status: disabled Other Information That Helps Us Care for You: No Feels Safe at Home: Yes Safety Concerns: Feels Safe At This Time Assistive Devices: CPAP and Walker Review of Systems A total of 10 systems reviewed and were otherwise negative This was obtained from the patient's and mother. Physical Exam Vital Signs Vital Signs - 24 hr 08/23/22 10:00 08/23/22 10:30 08/23/22 11:00 Pulse Rate Pulse Rate from SpO2 Sensor 79 78 83 Respiratory Rate Blood Pressure Blood Pressure Mean Pulse Oximetry 90 94 94 Oxygen Delivery Method 08/23/22 11:30 08/23/22 12:00 08/23/22 12:30 Pulse Rate Pulse Rate from SpO2 Sensor 76 82 88 Respiratory Rate 17 Blood Pressure 119/78 Blood Pressure Mean 91 Pulse Oximetry 92 90 97 Oxygen Delivery Method 08/23/22 13:16 08/23/22 13:16 08/23/22 13:30 Pulse Rate 81 Pulse Rate from SpO2 Sensor Respiratory Rate 21 Blood Pressure 116/74 118/80 Blood Pressure Mean 95 92 Pulse Oximetry Oxygen Delivery Method 08/23/22 13:30 08/23/22 14:00 08/23/22 14:00 Pulse Rate 88 76 Pulse Rate from SpO2 Sensor 88 75 Respiratory Rate 21 20 Blood Pressure 119/78 Blood Pressure Mean 99 Pulse Oximetry 100 85 L Oxygen Delivery Method Room Air 08/23/22 15:55 Pulse Rate 85 Pulse Rate from SpO2 Sensor Respiratory Rate Blood Pressure Blood Pressure Mean Pulse Oximetry Oxygen Delivery Method General: Well-developed, well-nourished, middle-aged male, who was initially obtunded. He was unable to answer questions reliably and was not sure of his location. At points he was difficult to arouse. Reevaluation throughout his ED stay revealed improved mental cognition and speech. He was still unable to move his extremities. Skin: Warm and dry with good turgor. No rashes or lesions. No ecchymosis or erythema. HEENT: Normocephalic atraumatic. Eyes PERRLA, EOMI. bilateral conjunctiva and scleral injection. Ears TMs intact bilaterally with good light reflexes. No erythema or bulging. No hemotympanum. Canals are patent. Nares patent bi laterally without turbinate enlargement. No significant drainage. No epistaxis. Oropharynx without erythema or exudate. Uvula midline, oral mucosa moist. No lesions present. Heart: Heart RRR. No MGR. Peripheral pulses are 2+. Lungs: Lungs are clear to auscultation. No crackles rhonchi or wheezing. Good air movement. The patient is able to take a deep breath. Abdomen: Abdomen was inspected, auscultated, and palpated. Bowel sounds present x 4. Soft, nontender to palpation. No hepato-splenomegaly. No masses noted. No rebound. No CVA tenderness. Musculoskeletal: Initial exam revealed no significant motor function and his upper or lower extremities. He does not have ankle or toe motion in either leg as a baseline. He also has very limited elbow flexion in both arms as baseline. However, he has normal shoulder, wrist, and hand motion according to his . These were absent. He also has normal hip and knee motion in both legs according to his . These were also absent. He did develop some motor function progressively throughout his stay, initially in his left thumb and then also involving his right thumb and right index finger. He was able to rotate his neck throughout his evaluation. There is no discomfort with palpation over his cervical spine or thoracic spine at any point during his evaluation. Neurologic: The patient has decreased subjective sensation across the upper and lower extremities. He states he can feel sensation on his right thumb and index finger as well as his left thumb. There is absence of sensation on the other digits of his right hand and left hand as well as his thighs, calves, and feet. Early in his exam he stated he did not have sensation with scratching of his face. There was initially absence of response to painful stimuli on his feet or hands. Just prior to admission, painful stimuli was sensed on his hands, but still not on his feet. Course Administered Medications Discontinued Medications Acetaminophen (Acetaminophen 325 Mg Tab) 650 mg PO Q4H PRN PRN Reason: Pain or Fever Stop: 09/22/22 17:16 Last Admin: 08/24/22 11:03 Dose: 650 mg Documented By: WENDY Enoxaparin Sodium (Enoxaparin Inj 40 Mg/0.4 Ml Syr) 40 mg SQ Q24H KYRA Stop: 09/23/22 08:59 Last Admin: 08/24/22 09:11 Dose: 40 mg Documented By: WENDY Folic Acid (Folic Acid 1 Mg Tab) 1 mg PO QAM KYRA Stop: 09/23/22 08:59 Last Admin: 08/24/22 09:12 Dose: 1 mg Documented By: WENDY Sodium Chloride (Nss 1000ml) 1,000 mls @ 999 mls/hr IV .Q1H1M KYRA Stop: 08/23/22 13:30 Last Infusion: 08/23/22 14:48 Dose: 0 mls/hr Documented By: Admin: 08/23/22 12:44 Dose: 999 mls/hr Documented By: IGLESIA Sodium Chloride (Nss 1000ml) 1,000 mls @ 999 mls/hr IV .Q1H1M ONE Stop: 08/23/22 22:24 Last Infusion: 08/23/22 23:05 Dose: 0 mls/hr Documented By: Admin: 08/23/22 22:00 Dose: 999 mls/hr Documented By: TOMY Lactated Ringer's (Lr) 1,000 mls @ 250 mls/hr IV .Q4H ONE Stop: 08/24/22 02:59 Last Infusion: 08/24/22 02:10 Dose: 0 mls/hr Documented By: Admin: 08/23/22 22:00 Dose: 250 mls/hr Documented By: TOMY Lactated Ringer's (Lr) 1,000 mls @ 250 mls/hr IV .Q4H ONE Stop: 08/24/22 06:52 Last Infusion: 08/24/22 09:22 Dose: 0 mls/hr Documented By: Admin: 08/24/22 03:03 Dose: 200 mls/hr Documented By: TOMY Thiamine HCl 100 mg/ Syringe 10 mls @ 2 mls/min IV ONE ONE Stop: 08/24/22 03:19 Last Admin: 08/24/22 04:13 Dose: 2 mls/min Documented By: TOMY Ioversol (Optiray 320 500ml) 108 ml IV ONCE ONE Stop: 08/23/22 13:05 Last Admin: 08/23/22 13:04 Dose: 108 ml Documented By: ANN Multivitamins (Multivitamin Tab) 1 tab PO QAM KYRA Stop: 09/23/22 08:59 Last Admin: 08/24/22 09:12 Dose: 1 tab Documented By: WENDY Ondansetron HCl (Ondansetron Inj 2 Mg/Ml 2 Ml Vial) 4 mg IV NOW STA Stop: 08/23/22 03:54 Last Admin: 08/23/22 04:06 Dose: 4 mg Documented By: THEO Medical Decision Making Differential Diagnosis Intracranial bleed, anoxic stroke, cord injury, psychiatric disorder, altered mental status, secondary gain, rhabdomyolysis, alcohol intoxication, exacerbation of spinal muscular atrophy Medical Records Attestation: I reviewed the patient's medical records. Home Medications Current Medication List: was personally reviewed by me Laboratory Data CBC and PRP initially obtained were relatively unremarkable. Chloride was mildly elevated at 109 and CO2 was mildly low at 20. BUN and creatinine were fine. Glucose was only 108. Alcohol was 339. Recheck of labs at 1230 show a normal white count and H&H. No signs of infection. Recheck of his chemistry panel shows normal electrolytes. Normal BUN. Creatinine mildly low at 0.53. LFTs are unremarkable. Glucose 93. Alcohol had only dropped to 182.8. COVID test obtained today was negative. 08/24/22 05:44 08/24/22 05:44 Lab Results 08/23/22 08/23/22 08/23/22 Range/Units 04:00 04:00 04:00 WBC 7.08 (4.8-10.8) K/ul RBC 4.77 (4.70-6.10) M/uL Hgb 14.4 (14.0-18.0) g/dl Hct 41.8 L (42.0-52.0) % MCV 87.6 (80.0-100.0) fL MCH 30.2 (25.0-34.0) pg MCHC 34.4 (32.0-36.0) g/dL RDW Std Deviation 41.2 (36.4-46.3) fL RDW Coeff of Kyle 13.0 (11.5-14.5) % Plt Count 228 (130-400) K/uL MPV 9.7 (9.4-12.4) fL Immature Gran % (Auto) 0.3 % Neut % (Auto) 57.8 % Lymph % (Auto) 33.5 % [place] % (Auto) 7.6 % Eos % (Auto) 0.4 % Baso % (Auto) 0.4 % Neut # (Auto) 4.09 (1.40-6.50) K/uL Lymph # (Auto) 2.37 (1.2-3.4) K/uL [place] # (Auto) 0.54 (0.11-0.59) K/uL Eos # (Auto) 0.03 (0-0.50) K/uL Baso # (Auto) 0.03 (0-0.2) K/uL Immature Gran # (Auto) 0.02 (0.01-0.20) K/uL Sodium 140 (136-145) mmol/L Potassium 4.2 (3.5-5.1) mmol/L Chloride 109 H (98-107) mmol/L Carbon Dioxide 20 L (21-32) mmol/L Anion Gap 11 (3-11) BUN 18 (6-23) mg/dl Creatinine 0.67 (0.6-1.4) mg/dl Est Cr Clr Drug Dosing Not Reportable Est GFR ( Amer) 135.4 ml/min Est GFR (Non-Af Amer) 116.9 ml/min BUN/Creatinine Ratio 26.9 H (10-20) Glucose 108 H (70-99(Fasting)) mg/dl POC Glucose (70-99) mg/dl Calcium 8.6 (8.6-10.3) mg/dl Total Bilirubin 0.3 (0.2-1.0) mg/dl Direct Bilirubin (0-0.2) mg/dl AST 23 (13-39) U/L ALT 24 (7-52) U/L Alkaline Phosphatase 59 (34-104) U/L Total Protein 7.9 (6.0-8.3) gm/dl Albumin 4.6 (3.4-5.0) gm/dl Globulin 3.3 (2.5-4.0) gm/dl Albumin/Globulin Ratio 1.4 (0.9-2) Ethyl Alcohol mg/dL 339.8 H (<10.0) mg/dl 08/23/22 08/23/22 08/23/22 Range/Units 12:34 12:34 12:49 WBC 9.47 (4.8-10.8) K/ul RBC 4.81 (4.70-6.10) M/uL Hgb 14.5 (14.0-18.0) g/dl Hct 42.2 (42.0-52.0) % MCV 87.7 (80.0-100.0) fL MCH 30.1 (25.0-34.0) pg MCHC 34.4 (32.0-36.0) g/dL RDW Std Deviation 42.5 (36.4-46.3) fL RDW Coeff of Kyle 13.2 (11.5-14.5) % Plt Count 239 (130-400) K/uL MPV 9.7 (9.4-12.4) fL Immature Gran % (Auto) 0.4 % Neut % (Auto) 78.3 % Lymph % (Auto) 17.6 % [place] % (Auto) 3.6 % Eos % (Auto) 0.0 % Baso % (Auto) 0.1 % Neut # (Auto) 7.41 H (1.40-6.50) K/uL Lymph # (Auto) 1.67 (1.2-3.4) K/uL [place] # (Auto) 0.34 (0.11-0.59) K/uL Eos # (Auto) 0.00 (0-0.50) K/uL Baso # (Auto) 0.01 (0-0.2) K/uL Immature Gran # (Auto) 0.04 (0.01-0.20) K/uL Sodium 140 (136-145) mmol/L Potassium 4.3 (3.5-5.1) mmol/L Chloride 106 (98-107) mmol/L Carbon Dioxide 22 (21-32) mmol/L Anion Gap 12 H (3-11) BUN 12 (6-23) mg/dl Creatinine 0.53 L (0.6-1.4) mg/dl Est Cr Clr Drug Dosing Not Reportable Est GFR ( Amer) 149.1 ml/min Est GFR (Non-Af Amer) 128.7 ml/min BUN/Creatinine Ratio 22.6 H (10-20) Glucose 105 H (70-99(Fasting)) mg/dl POC Glucose 93 (70-99) mg/dl Calcium 8.8 (8.6-10.3) mg/dl Total Bilirubin 0.3 (0.2-1.0) mg/dl Direct Bilirubin 0.1 (0-0.2) mg/dl AST 23 (13-39) U/L ALT 26 (7-52) U/L Alkaline Phosphatase 62 (34-104) U/L Total Protein 8.2 (6.0-8.3) gm/dl Albumin 4.9 (3.4-5.0) gm/dl Globulin 3.3 (2.5-4.0) gm/dl Albumin/Globulin Ratio 1.5 (0.9-2) Ethyl Alcohol mg/dL (<10.0) mg/dl 08/23/22 Range/Units 13:39 WBC (4.8-10.8) K/ul RBC (4.70-6.10) M/uL Hgb (14.0-18.0) g/dl Hct (42.0-52.0) % MCV (80.0-100.0) fL MCH (25.0-34.0) pg MCHC (32.0-36.0) g/dL RDW Std Deviation (36.4-46.3) fL RDW Coeff of Kyle (11.5-14.5) % Plt Count (130-400) K/uL MPV (9.4-12.4) fL Immature Gran % (Auto) % Neut % (Auto) % Lymph % (Auto) % [place] % (Auto) % Eos % (Auto) % Baso % (Auto) % Neut # (Auto) (1.40-6.50) K/uL Lymph # (Auto) (1.2-3.4) K/uL [place] # (Auto) (0.11-0.59) K/uL Eos # (Auto) (0-0.50) K/uL Baso # (Auto) (0-0.2) K/uL Immature Gran # (Auto) (0.01-0.20) K/uL Sodium (136-145) mmol/L Potassium (3.5-5.1) mmol/L Chloride (98-107) mmol/L Carbon Dioxide (21-32) mmol/L Anion Gap (3-11) BUN (6-23) mg/dl Creatinine (0.6-1.4) mg/dl Est Cr Clr Drug Dosing Est GFR ( Amer) ml/min Est GFR (Non-Af Amer) ml/min BUN/Creatinine Ratio (10-20) Glucose (70-99(Fasting)) mg/dl POC Glucose (70-99) mg/dl Calcium (8.6-10.3) mg/dl Total Bilirubin (0.2-1.0) mg/dl Direct Bilirubin (0-0.2) mg/dl AST (13-39) U/L ALT (7-52) U/L Alkaline Phosphatase (34-104) U/L Total Protein (6.0-8.3) gm/dl Albumin (3.4-5.0) gm/dl Globulin (2.5-4.0) gm/dl Albumin/Globulin Ratio (0.9-2) Ethyl Alcohol mg/dL 182.8 H (<10.0) mg/dl Imaging Data My Impression: CT scan angiography was obtained of his head, neck, chest, abdomen, and pelvis, and due to his physical exam findings and concern about possible source. Though there was no known trauma according to his , his symptoms did not coincide with just alcohol intoxication. All of the scans were reviewed and interpreted by myself and Dr. Hernandez. They were read by radiology. All of the studies were normal. Prescription Drug Monitoring [place] Drug Monitoring Program reviewed and no issues identified Blood Pressure Blood Pressure Findings: Normal blood pressure MDM Narrative The patient was evaluated in room C9. Conservative care measures were discussed. He remained on a monitoring and evaluation advisor throughout his ED stay. He remained in normal sinus rhythm with a rate in the 70s and 80s. He did have several episodes of hypoxia with saturations in the 80s when off of oxygen. GCS score of 9 was obtained. He was very difficult to arouse throughout the morning. Once meaningful interaction was obtained, the patient had significant altered mental status. He was much different than his had ever seen him. Due to his somnolence, con tinued hypoxic episodes, and lack of motor function, oxygen was supplemented with O2 mask at 7 L. Oxygen saturation improved to 100%. He was hydrated with 1 L normal sterile saline IV bolus. He declined any nausea medication throughout my interaction with him. Repeat lab work and CT scan imaging was obtained. All of these were unremarkable other than his alcohol level, which remained elevated at 182. This was approximately 11 hours after his last drink. The patient continued to make small improvements in his mental status as well as motor function, but had no meaningful use of the large muscle groups. He will likely require MRI imaging of his brain and neck. The patient is aware. G iven his inability to ambulate or care for himself, admission was recommended. The family is in agreement. [employer] [facility] service was contacted. Please see that dictation for final management. Critical care statement: I have personally spent greater than 40 minutes of critical care time in the direct management of this patient. This includes bedside care, interpretation of diagnostic studies, and testing, discussion with the radiologist, patient, and family members, and other required patient management activities. This 40 minutes is in excess of all separately billable procedures. The patient was felt to be an imminent risk of decompensation due to his hypoxia, alcohol intoxication, and impaired cognitive function. The patient was seen in conjunction with Dr. Hernandez, who was also very involved in his care. Impression & Plan Alcohol use with intoxication Admission. Additional MRI imaging will be completed. Discharge Plan Visit Data Chief Complaint: Alcohol Intoxication ED Provider: Eyad Carter ED Midlevel Provider: Martin Lundberg Discharge Problem: Alcohol use with intoxication Patient Disposition: Admitted As Inpatient Condition: Good Discharge Instructions Interventions: ED Discharge Assessment Last Done: 08/23/22 20:35
[2022-08-24 16:11] LABS: Amphetamines+Metham, Urine Neg (Neg); Barbiturates, Urine Neg (Neg); Benzodiazepine, Urine Neg (Neg); Cocaine, Urine Neg (Neg); MDMA (Ecstacy), Urine Neg (Neg); Methadone, Urine Neg (Neg); Opiate, Urine Neg (Neg); Phencyclidine, Urine Neg (Neg)
--- NOTE | 2022-08-24 16:52 | Discharge Summary ---
Date of Service August 24, 2022 Admission HPI Per Admitting Provider 42yoM with a Hx of spinal muscular atrophy (SMA) with chronic loss of distal muscle strength in both upper and lower extremities who presents with extended sedation/AMS and progressive muscle weakness after drinking alcohol. , mother and father present at bedside and contribute to the Hx. Mom notes that he was born with SMA and club feet. Has not been able to lift his arms or use them. Is currently on disability reletaed to his SMA. However he is ambulatory at baseline though he cannot voluntarily move his feet. states they give him some help in the morning but he is usually able to ambulate on his own. She states that he had drinks 2 nights before last night to celebrate her birthday and tolerated that well even better than herself. He was able to get up at 8:30AM the next morning. However, he went out with his daughter who turned 21 last night and had 4-5 tequila shots at about 11PM. By 2AM he was slumped and passed out in the parking lot and unarousable in the ED. notes that he rarely drinks alcohol, has not touched it for many years before this. They deny any further signifcant family H except diabetes. Family states pt follows with a specialist at [facility] for his SMA. Admission Exam Per Admitting Provider General: Lethargic but oriented with prompting. No acute distress Skin: No noted rashes or bruises Psych: could not be adequetly determined Neuro: Did not need sternal rub but obviously lethargic. Weakness distal muscles of arms bilaterally, unable to move proximal arm muscles or feet HEENT: NC/AT, PERRLA, no tongue fasciculations visble CV: RRR, Normal s1, s2. No murmurs appreciated Resp: Breath sounds clear bilaterally, no increased effort of breathing. Abdomen: Soft, slightly tender in lower abdomen. Extremities: No edema in lower extremities bilaterally. Principal Diagnosis Toxic encephalopathy Alcohol intoxication History of spinal muscular atrophy Discharge Exam GENERAL: Alert and oriented x3. NAD, on RA. HEENT: No pallor, no icterus. Pupils equal, round and reactive to light. Oral mucosa moist. NECK: No JVD, no neck masses. HEART: S1 and S2 heard. Regular rate and rhythm. No murmur, no gallop. RESPIRATORY SYSTEM: Normal AP diameter. No accessory muscle use. No wheezing, no crackles. ABDOMEN: Soft, bowel sounds present, nontender, no distention. CENTRAL NERVOUS SYSTEM: No facial droop. Speech is clear. Obeys simple commands. Moves extremities, power 3/5, hypotonic. EXTREMITIES: No edema, no erythema seen. Discharge Data Allergies Allergy/AdvReac Type Severity Reaction Status Date / Time No Known Allergies Allergy Verified 07/18/18 12:52 Consultations 08/23/22 16:09 ED Decision to Admit Stat 08/23/22 22:37 Consult Neurology Routine Ordered Studies 08/23/22 12:38 CT head/brain wo con Stat CT neck [CT cervical spine wo con] Stat 08/23/22 12:43 CT abd pelvis IV con only Stat CT angio chest PE protocol Stat 08/23/22 12:56 CT angio head w con Stat CT angio neck with con Stat 08/23/22 22:37 MRI Brain [MR brain wo/w con] Routine Hospital Course (1) AMS (altered mental status): (2) Alcohol use with intoxication: (3) SMA (spinal muscular atrophy): (4) Muscle weakness: Plan 42yoM with a Hx of spinal muscular atrophy (SMA) with chronic loss of distal muscle strength in both upper and lower extremities who presents with extended s edation/AMS and progressive muscle weakness after drinking alcohol. he was managed for the following: AMS/Alcohol intoxication/Acute worsening of progessive muscle weakness (2/2 underlying SMA) due to acute alcohol intoxication: Hx of SMA. Was out drinking with his 21 yo daughter, had 4-5 tequila shots and stumbled out to car where he "slumped" and completely lost consciousness in the parking lot. Got to the bar at 11PM and passed out at about 2AM. Able to walk at baseline but unable to use arms to lift things due to SMA. Family states he "slumped" to the ground and they called 911 when they could not get him up. Unarousable in the ED until about 12PM, and was admitted. Alc level high at presentation, Utox neg. CTA head/neck/chest, CT head, CTAP, CT C-spine with no acute findings. Patient declined brain MRI, patient would like to go home and would not like to wait until in person neurology evaluation tomorrow. Discussed with neurology over the phone, most likely explanation is acute worsening of his progressive muscle weakness due to acute alcohol intoxication on the background he has underlying SMA. Patient wants to go home and he is hemodynamically stable and reports that he is at his baseline, will discharge. Patient advised to closely follow-up with his SMA specialist at [facility]. PT OT evaluated. DVT prophylaxis: Lovenox SQ Diet: Regular, passed dysphagia screen CODE STATUS: Full code Patient being discharged to home with family support with following instruction at the point of discharge: Follow-up with your primary care physician within a week time and likely you will need labs CBC/CMP. Maintain follow-up with your SMA specialist at [facility] as prior. Take your medications as prior. Home Health Attestation I certify that this patient is under my care and that I, or a physicians clinical assistant working with me, had a face to-face encounter that meets the home health [id number] encounter requirements with this patient. The encounter with the patient was in whole, or in part, for the following medical condition, which is the primary reason for home health care (list medical condition): I certify that, based on my findings, the following services are medically necessary home health services: My clinical findings support the need for the above services because: Further, I certify that my clinical findings support that this patient is homebound (i.e. absences from home require considerable and taxing effort and are for medical reasons or denominational services or infrequently or of short duration when for other reasons) because: Certification for Home Health Services: Based on the above findings, I certify that this patient is confined to the home and needs intermittent fpc care, physical therapy and/or speech therapy or continues to need occupational therapy. The patient is under my care, and I have initiated the establishment of the plan of care. This patient will be followed by a physician who will periodically review the plan of care. Total Time Total Time Spent Total Time Spent (In Minutes): 45 Discharge Plan Discharge Items Patient Disposition: Home - Self-Care Reason For Visit: AMS Discharge Diagnosis: Toxic encephalopathy Alcohol intoxication History of spinal muscular atrophy Condition on Discharge: Good Activity: Resume your previous activity Non-emergency contact: Primary Care Provider Call non-emergency contact if: you have any medication questions and your symptoms worsen Follow-up/Referrals: Tao Berumen DO [Primary Care Provider] - Diet: Regular Addtl Attending Provider Instructions: Follow-up with your primary care physician within a week time and likely you will need labs CBC/CMP. Maintain follow-up with your SMA specialist at [facility] as prior. Take your medications as prior. Pending Studies at Discharge: No Stand-Alone Forms: My [facility], Smoking Cessation Medications and DC Order Prescriptions: New folic acid 1 mg Tablet 1 mg PO QAM 15 Days Qty: 15 0RF multivitamin with folic acid [Daily-Jodie (with folic acid)] 400 mcg Tablet 1 tab PO QAM 15 Days Qty: 15 0RF thiamine HCl (vitamin B1) 100 mg Tablet 100 mg PO QAM 15 Days Qty: 15 0RF Continued coenzyme Q10 [Co Q-10] 100 mg Capsule 1 tab PO DAILY fluticasone propionate 50 mcg/actuation spray,suspension 2 spray INTRANASAL QAM Discharge Orders: Discharge Order (Routine); Ordered 08/24/22 Ordered By: Jennyfer Gonzales Admission Data Admit Date/Time: 08/23/22 17:18 Attending Provider: Jennyfer Gonzales Admit Provider: Jennifer Brown Primary Care Provider: Tao Berumen Other Providers: Jennifer Brown ; Favio Ngo
[2022-08-25] MEDS ORDERED: THIAMINE HCL 100 MG TAB PO SCH (09:00)
== END 2022-08-24 17:35 | disposition home or self-care (01) | DRG 92 ==
LOC: ED 03:37 → 2W 17:18 → SUATTDRO 17:18 → 2W 20:35